=== PATIENT | female | born 1940 | race Caucasian/White ===

== ENCOUNTER → 2016-11-17 | Outpatient (CLI) | payer BC ==
[~2016-11-17] MED LIST: ASPI-428 PO; CETI10TA84 PO; FURO40TA3 PO; LATA0.009 OP; LISI-729 PO; METO1TAB31 PO; MULTTAB58 PO; PRT/20 PO; PRVC/40 PO; TIMO0.5S2 OPB
--- NOTE | 2016-11-18 07:45 | MAMMOGRAPHY REPORT ---
BILATERAL DIGITAL SCREENING MAMMOGRAM WITH CAD: 11/17/2016 CLINICAL HISTORY: Routine screening. Patient has no complaints. TECHNIQUE: Bilateral CC and MLO views were obtained. Current study was also evaluated with a Compute r Aided Detection (CAD) system. COMPARISON: Comparison is made to exams dated: 11/13/2015 mammogram, 11/08/2014 mammogram, 10/10/2013 [place] mogram, 09/23/2012 mammogram, 08/10/2011 mammogram, and 08/05/2011 mammogram - [facility]. BREAST COMPOSITION: There are scattered areas of fibroglandular density in both breasts. FINDINGS: There are benign coarse and rodlike secretory calcifications in both breasts. No suspiciou s mass, architectural distortion or cluster of suspicious microcalcifications is seen. IMPRESSION: ACR BI-RADS CATEGORY 1: NEGATIVE There is no mammographic evidence of malignancy. A 1 year screening mammogram is recommended. The pa tient will receive written notification of the results. Approximately 10% of breast cancers are not detected with mammography. A negative mammographic report should not delay biopsy if a clinically suggestive mass is present. Britney Chapman M.D. ay/:11/17/2016 15:24:51 Slab Puller: Phoebe Hagan, [facility] letter sent: Normal 1/2 BI-RADS Code: ACR BI-RADS Category 1: Negative
== END | disposition home or self-care (01) ==
LOC: C.MAMM 14:37
PROVIDERS: ATTEND Family Medicine
DX: Z12.31 Encounter for screening mammogram for malignant neoplasm of breast (principal)

== ENCOUNTER → 2017-06-02 | Day surgery (SDC) | payer BC ==
[2017-05-19 13:30] VITALS: Ht 160 cm; Wt 67.7 kg
[~2017-06-02] VITALS: Ht 160 cm; Wt 67.7 kg
[~2017-06-02] MED LIST changes: +500ML BSS 0.3ML EPI 1:1000PF IRRIG ONE; +ACETAMINOPHEN 325 MG TAB PO PRN; +AMVISC PLUS 0.8ML SYRINGE INT OCU ONE; +ATROPINE SULFATE 0.1 MG/ML 5ML SYR IV PRN; +AcetaZOLAMIDE 250 MG TAB PO SCH; +BENA10TA10 PO; +BETAXOLOL HCL 0.25% OP SUSP PER DROP CHARGE OPL SCH; +BRIMONIDINE TART 0.2% OP SOLN PER DROP CHARGE ONE; +BSS FLUSH ONE; +ENDOCOAT 0.85ML SYRINGE INT OCU ONE; +EpHEDrine SULFATE INJ 50 MG/ML AMP IV PRN; +EpINEphrine INJ 1MG/ML AMP 1 MG/ML AMP ONE; +FURO-85 PO; -FURO40TA3 PO; +LACTATED RINGER'S 1000ML 500 ML IV SCH; -LATA0.009 OP; +LATA0.009 OPB; +LIDOCAINE 4% OP SOLN DROP CHARGE ONE; +LIDOCAINE 4% OP SOLN DROP CHARGE OPL SCH; +LIDOCAINE HCL 1% MPF 2 ML VIAL ONE; -LISI-729 PO; +LISI-789 PO; -METO1TAB31 PO; +METO25TA3 PO; +MIDAZOLAM HCL 1 MG/ML 2ML VIAL ONE; +MIX: 4ML BSS 1ML EPI 1:1000 PF INSTIL ONE; +MOXIFLOXACIN OPH SOLN PER DROP CHARGE ONE; +OCUCOAT 1 ML SOLN IO ONE; +PANT40TA PO; +POLYSOL4 OPB; +POVIDONE-IODINE OP SOLN 30 ML BTL ONE; +PROPARACAINE 0.5% OP SOLN PER DROP CHARGE OPL SCH; -PRT/20 PO; -TIMO0.5S2 OPB; +TMPOPS15 OPB; +TOBRAMYCIN/DEXAMETHASONE OPH OINT PER APPLN CHARGE ONE
--- NOTE | 2017-06-02 07:31 | History & Physical Bridge - [place] ---
H&P Re-Evaluation Bridge Note: I have examined the patient, reviewed the History & Physical and in the interval since the performance of the History & Physical I have noted the following changes of clinical significance: No changes noted
[2017-06-02] MEDS: PHENYLEPHRINE HCL 2.5% OP SOLN PER DROP CHARGE OPL SCH ×2 (10:37→10:40)
[2017-06-02] MEDS: TROPICAMIDE 1% OP SOLN PER DROP CHARGE OPL SCH ×2 (10:38→10:41)
[2017-06-02] MEDS: CYCLOPENTOLATE HCL 1% OP SOLN PER DROP CHARGE OPL SCH ×2 (10:39→10:42)
[2017-06-02] MEDS: MOXIFLOXACIN OPH SOLN PER DROP CHARGE OPL SCH ×2 (10:40→10:44)
--- NOTE | 2017-06-02 11:49 | [facility] Operative Report ---
Operative Report Date of Service Jun 02, 2017. Operative Report 1. PREOPERATIVE DIAGNOSIS: Senile nuclear cataract, left eye. 2. POSTOPERATIVE DIAGNOSIS: Senile nuclear cataract, left eye. 3. PROCEDURE: Phacoemulsification of left cataract with posterior chamber lens implant, type [employer], model MI60L, power +18.5 diopters. ANESTHESIA: Local standby. SURGEON: Dr. Clay. COMPLICATIONS: None. OPERATING TIME: 10 minutes. 4. OPERATION AND FINDINGS: DESCRIPTION OF PROCEDURE: The left pupil was dilated. The anesthetic was administered using a topical technique. The left eye was prepped and draped. A speculum was placed. A clear corneal incision was formed. The chamber was filled with Amvisc Plus and Endocoat. Epinephrine solution was used. A paracentesis was placed. A capsulorrhexis was performed. The nucleus was hydrodissected. The lens was removed with phacoemulsification. Time was 4.70 seconds. The aspiration unit was used to remove the cortex. The capsule was filled with Amvisc Plus. The lens implant was folded and placed into the capsule. The incision was hydrated. The Amvisc was aspirated. The wound was secure. The chamber was deep. The pupil was round. Brimonidine, TobraDex ointment and Vigamox solution were placed. The speculum was removed. The patient was returned to the Recovery Room in stable condition. I attest to the content of the Intraoperative Record and any orders documented therein. Any exceptions are noted below. The scribe's documentation has been prepared in my presence, under my direction and personally reviewed by me in its entirety. I confirm that the note above accurately reflects all work, treatment, procedures, and medical decision making performed by me. I personally scribed for Rubens Clay M.D. ([email or web address]) on 06/02/17 at 11:49. Electronically submitted by Elodia Weir ([email or web address]).
--- NOTE | 2017-06-02 11:53 | Discharge Instructions-SurgCtr ---
Discharge Instructions Date of Service Jun 02, 2017. Visit Reason for Visit: Cataract Left Eye Discharge Discharge Diagnosis / Problem: lens implant left eye Discharge Goals Goal(s): Improve function Activity Recommendations Activity Limitations: resume your previous activity Lifting Limitations: no more than 10 pounds Exercise/Sports Limitations: gradually increase as tolerated May Resume Sexual Activity: when tolerated Shower/Bathe: tomorrow Driving or Machine Use: resume 1 day after discharge Anesthesia . Post Anesthesia Instructions: If you have had General Anesthesia or IV Sedation: * Do not drive today. * Resume driving when surgeon permits. * Do not make important decisions or sign legal documents today. * Call surgeon for: 1. Temperature elevations greater than 101 degrees F. 2. Uncontrollable pain. 3. Excessive bleeding. 4. Persistent nausea and vomiting. 5. Medication intolerance (nausea, vomiting or rash). * For nausea and vomiting use only clear liquids such as: tea, soda, bouillon until nausea subsides, then gradually increase diet as tolerated. * If you have any concerns or questions, call your surgeon's office. If physician is unavailable and it is an emergency, call 911 or go to the nearest emergency room. . Instructions / Follow-Up Instructions / Follow-Up ACTIVITY RECOMMENDATIONS: * Light activities. * Mild irritation and blurred vision are common for the first few days. * You may walk outside, read, watch television. * Redness around the white part of the eye is common. MEDICATIONS: Resume previous medications unless instructed otherwise by your surgeon. * Take white Diamox (Acetazolamide) tablet at 2 pm today. Start all eye drops at 2 pm today: * Eye drops (today and tomorrow): Prednisone - one drop in operative eye every 3 hours while awake Tobramycin- one drop in operative eye every 3 hours while awake Continue Glaucoma drop as usual in right eye only. SPECIAL CARE INSTRUCTIONS: * Tape plastic shield over eye to sleep at night. Call your doctor at with any concerns or problems. FOLLOW UP VISIT: Follow-up with Dr Clay at [place] office as scheduled. Diet Recommendations Home Diet: no limitations Procedures Procedures Performed: Left Cataract Phacoemulsification With Intraocular Lens Implant Pending Studies Studies pending at discharge: no Medical Emergencies . Who to Call and When: Medical Emergencies: If at any time you feel your situation is an emergency, please call 911 immediately. . Non-Emergent Contact Non-Emergency issues call your: [employer] Call Non-Emergent contact if: your pain is not controlled [phone] . . "Provider Documentation" section prepared by Rubens Clay. .
[2017-06-02 11:54] VITALS: TEMP 36.7
[2017-06-02 12:18] VITALS: BP 108/71; PULSE 69; O2SAT 98
--- NOTE | 2017-06-02 12:20 | Anesthesia Progress Nt - [facility] ---
Anesthesia Post Op Note Date & Time Jun 02, 2017 at 12:20 Vital Signs Pain Intensity: 0 Vital Signs Past 12 Hours Date Time Temp Pulse Resp B/P (MAP) Pulse Ox O2 Delivery O2 Flow Rate FiO2 06/02/17 12:18 69 16 108/71 (83) 98 Room Air 06/02/17 11:54 36.7 64 16 110/71 (84) 97 Room Air 06/02/17 10:27 36.6 66 18 106/71 (83) 94 Room Air Notes Mental Status: alert / awake / arousable, participated in evaluation Pt Amnestic to Procedure: Yes Nausea / Vomiting: adequately controlled Pain: adequately controlled Airway Patency, RR, SpO2: stable & adequate BP & HR: stable & adequate Hydration State: stable & adequate Anesthetic Complications: no major complications apparent
== END | disposition home or self-care (01) ==
LOC: X.SURG 09:36
PROVIDERS: ATTEND Specialist
DX: H25.12 Age-related nuclear cataract, left eye (principal); I48.91 Unspecified atrial fibrillation; I11.0 Hypertensive heart disease with heart failure; I50.9 Heart failure, unspecified; M19.90 Unspecified osteoarthritis, unspecified site; K21.9 Gastro-esophageal reflux disease without esophagitis; I25.2 Old myocardial infarction; Z88.0 Allergy status to penicillin; Z79.82 Long term (current) use of aspirin; Z79.899 Other long term (current) drug therapy

== ENCOUNTER 2023-05-27 10:58 | Inpatient (IN) ==
[2023-05-27 11:30] LABS: iSTAT Creatinine 1.1 mg/dl (0.6-1.3); iSTAT Hemoglobin 12.6 g/dl (12.0-16.0); iSTAT Ionized Calcium 1.37 mmol/l (1.12-1.32)
[2023-05-27 11:32] LABS: Base Excess VBG 1.8 mEq/L; HCO3 VBG 28 mmol/L; Oxygen Saturation VBG < 60.0 %; PCO2 VBG 48 mmHg (38-50); PO2 VBG 20 mmHg; pH VBG 7.37 (7.36-7.41)
[2023-05-27 11:43] LABS: Basophils # (auto) 0.06 K/uL (0.00-0.20); Basophils % (auto) 0.5 %; Eosinophils # (auto) 0.01 K/uL (0.00-0.50); Eosinophils % (auto) 0.1 %; Hematocrit (blood only) 34.8 % (37.0-47.0); Immature Granulocytes # (auto) 0.07 K/uL (0.01-0.20); Immature Granulocytes % (auto) 0.6 %; Lymphocytes # (auto) 2.08 K/uL (1.20-3.40); Lymphocytes % (auto) 16.6 %; Mean Corpuscular Hemoglobin 33.1 pg (25.0-34.0); Mean Corpuscular Hgb Conc 34.5 g/dL (32.0-36.0); Mean Corpuscular Volume 95.9 fL (80.0-100.0); Mean Platelet Volume 11.5 fL (9.4-12.4); Monocytes # (auto) 1.17 K/uL (0.11-0.59); Monocytes % (auto) 9.4 %; Neutrophils # (auto) 9.11 K/uL (1.40-6.50); Neutrophils % (auto) 72.8 %; Platelet Count 192 K/uL (130-400); RDW Coefficient of Variation 13.4 % (11.5-14.5); RDW Standard Deviation 47.5 fL (36.4-46.3); Red Blood Count 3.63 M/uL (4.20-5.40)
[2023-05-27] MEDS: OPTIRAY 320 500ml IV ONE (11:44)
--- NOTE | 2023-05-27 11:47 | Emergency Department Note ---
Impression & Plan Demand ischemia, Sepsis, UTI (urinary tract infection) ED Provider Note NAME: ESTEBAN GOMEZ AGE: 83 SEX: F : 1940 ARRIVES VIA: Ambulance INFORMANT: Patient, ED PROVIDER(S): Rabia Guerra MD CHIEF COMPLAINT: Hypotension HPI: This is a 83-year-old female history of previous CAD, Alzheimer's, CKD, dementia presenting for hypotension. Patient reports that yesterday she sustained a fall where she fell backwards onto her bottom. She notes that she was helped back up and continue with her day. She not hit her head during this. Does hit her bottom. She notes that over the past few months she has lost about 40+ pounds. She notes that she had recent dental extractions and has been living on Ensure drinks for the past few months. She does she has been having decreasing ADLs. She denies any current pain, shortness of breath, chest pain. Notes her feet are swollen chronically but she does not take a fluid pill for this. She has no history of CHF. She went to the medical clinic where she lives and they noted her blood pressure was 60s over 30s and called EMS. EMS arrival noted that her blood pressures in the 70s systolic. ROS: See above HPI for pertinent positives & negatives. A total of 10 systems reviewed and were otherwise negative. PAST MEDICAL HISTORY: See Below PAST SURGICAL HISTORY: See Below FAMILY HISTORY: See Below SOCIAL HISTORY: See Below HOME MEDICATIONS: See Below ALLERGIES: See Below VITALS: See Below PHYSICAL EXAMINATION: General: Cachectic Head: Normocephalic, temporal wasting Eyes: Normal inspection, extraocular muscles intact Ear, nose, throat: Normal external exam Neck: Normal range of motion Respiratory: lungs clear to auscultation bilaterally Cardiovascular: Regular rate/rhythm, no murmur GI: soft, nontender, no guarding or rebound Extremities: 2+ pitting edema to bilateral lower extremities, no obvious erythema Neuro: The patient awake and alert, appropriately conversive, no focal deficits, symmetric faces Skin: Dry, flaking skin MEDICAL DECISION MAKING: This is a 83-year-old female presenting for hypertension. Patient has lost significant weight 40+ pounds in the past few months. Her previous registration picture compared to her today is significantly different she is lost significant muscle weight, she appears malnourished and cachectic. She states has been living off only Ensure. She has signs that she is not in daycare resolved with flaking skin, unwashed closed and dirty/ripped socks possibly covered in feces. Patient is currently hypotensive but she does have CHF and bilateral extremity swelling. Will get small amounts of fluid but otherwise will do screening workup for trauma as well as basic blood work to assess for underlying conditions. -Bedside ultrasound performed after 500 mL of saline bolused, patient has severely reduced EF, possibly around 10 to 20%. IVC is plump otherwise. Patient does have bilateral lower extremity -Patient is have a lactic acidosis at 2.4 and hypotension -Despite patient a 30 cc/kg fluid bolus as per sepsis, due to patient's above bedside echo, signs of CHF, will defer further imaging. Only given 500 mL in the ER with mild improvement in blood pressure. -Otherwise patient's troponin is significantly elevated with significantly BNP as well. Consider this possible demand ischemia from sepsis. Source skin appears to be related to UTI -CK is also significantly elevated here at 1748 -No acidosis noted on VBG, 7.37/48 -Slight leukocytosis noted 12.5 -CTs do not reveal any acute traumatic process. There is no other acute process to explain patient's current symptoms. Lung nodule again noted discussed with patient. -Patient [facility] be [facility] under Dr. Tobar. Differential diagnosis: Malnutrition, PE, sepsis ER treatment provided: See below Diagnostics interpreted by me: ECG: ECG independently interpreted by me with normal sinus rhythm, rate of 82, right axis deviation, normal WI, normal QRS, normal QTc, no ST segment elevations consistent with STEMI criteria Cardiac Monitoring: An order was placed for continuous cardiac monitoring. The monitor shows a rate of 66 with sinus rhythm. Laboratory studies: As stated above and show below. Imaging studies: See below. Critical Care Note: I have personally spent 50 minutes of critical care time in the direct management of this patient. This includes bedside care, interpretation of diagnostic studies, and testing, discussion with consultants, patient, and family members, and other required patient management activities. This 50 minutes is in excess of all separately billable procedures. Past Med/Surg History Medical History (Updated 05/27/23 @ 15:26 by Rabia Guerra MD) Emphysema lung noted on 04/[address] Heart failure EF 35% Atrial fibrillation post-operative without recurrence per cardio records History of blood transfusion 2014 Gastric ulcer Cardiomyopathy EF 35% Neuropathy GERD (gastroesophageal reflux disease) Alzheimer disease CKD (chronic kidney disease) stage 3, GFR 30-59 ml/min no specialist Deformity of both feet r/t arthritis - able to ambulate with use of cane for long distance History of jaundice as a child no problems since. Glaucoma Myocardial Infarction r/t a vessel rupture ~. Hypertension Hyperlipidemia Surgical History (Updated 12/11/22 @ 11:11 by Teresa Easley RN) Hx of oral surgery (12/11/22) p Removal of Large Bony Mass Palate/Lesion - Yasamny Truong DMD s Extraction of Erupted Teeth x29, Closure of Palatal Soft Tissue Defect, Denture Splint - Yasmany Truong DMD History of esophagogastroduodenoscopy (EGD) History of bilateral tubal ligation History of colonoscopy last 06/25/20 @ [facility] History of cataract surgery bilateral History of open heart surgery VSD repair 05/2013 and 03/2016, mitral and tricuspid valve repairs H/O heart artery stent 2 CHUN RCA 05/2013 Family History Mother Heart disease Other No family history of adverse response to anesthesia Social History (Updated 09/25/22 @ 12:59 by Teresa Easley RN) Smoking Status: Never smoker Second Hand Exposure: No; Do You Dip or Chew Tobacco: No; Hx Alcohol Use: No Hx Substance Use: No Preferred Language: Albanian Communication Ability: Effective Visual Impairment: No Limitations Lunchroom Monitor Required: No Beliefs That Will Affect Care: None marital status: Current Living Situation: Spouse current occupational status: retired Feels Safe at Home: Yes Diet: low salt Assistive Devices: Cane, Glasses and Walker Allergies Allergies Allergy/AdvReac Type Severity Reaction Status Date / Time adhesive Allergy Mild REDENNED Verified 05/27/23 14:03 FROM CERTAIN TYPES Penicillins Allergy Mild RASH Verified 05/27/23 14:03 lisinopril AdvReac Cough Verified 05/27/23 14:03 Home Meds Home Medications Medication Instructions Recorded Confirmed cetirizine 10 mg tablet (Zyrtec) 10 mg PO QAM 12/19/17 05/27/23 multivitamin 1 tab PO QAM 12/19/17 05/27/23 pantoprazole 40 mg tablet,delayed 40 mg PO HS 12/19/17 05/27/23 release timolol maleate 0.5 % eye drops 1 drp ophthalmic (eye) QA 12/19/17 05/27/23 atorvastatin 40 mg tablet 40 mg PO HS 06/18/20 05/27/23 cholecalciferol (vitamin D3) 25 25 mcg PO QAM 06/18/20 05/27/23 mcg (1,000 unit) capsule (Vitamin D3) vit C 250 mg-vit E 90 mg-zinc 40 2 tab PO QAM 06/18/20 05/27/23 mg-copper 1 [id number]-[id number] capsule (PreserVision AREDS-2) aspirin 81 mg tablet,delayed 162 mg PO QAM 09/25/21 05/27/23 release (Adult Low Dose Aspirin) donepezil 10 mg tablet 10 mg PO HS 09/25/21 05/27/23 metoprolol succinate 25 mg 25 mg PO HS 09/25/21 05/27/23 tablet,extended release 24 hr acetaminophen 650 mg tablet 650 mg PO QA 10/23/21 05/27/23 ascorbic acid (vitamin C) 1,000 mg 1 g PO QAM 10/23/21 05/27/23 tablet (Vitamin C) latanoprostene bunod 0.024 % eye 1 drp ophthalmic (eye) HS 10/23/21 05/27/23 drops (Vyzulta) calcium carbonate 500 mg calcium 500 mg PO QAM 09/25/22 05/27/23 (1,250 mg) chewable tablet (Calcium 500) diphenhydramine 25 1 tab PO HS 12/03/22 05/27/23 mg-acetaminophen 500 mg tablet (Tylenol PM Extra Strength) losartan 25 mg tablet 25 mg PO DAILY 05/27/23 05/27/23 Results & Data (ED) Vital Signs Vital Signs - 24 hr 05/27/23 11:06 05/27/23 11:15 05/27/23 11:19 Temperature 36.4 C Temperature Source Oral Pulse Rate 84 78 Pulse Rate from SpO2 Sensor Respiratory Rate 20 Respiratory Effort / Characteristics Non-Labored Spontaneous Respiratory Depth Normal Blood Pressure 75/40 L 96/51 L Blood Pressure Mean 51 71 Pulse Oximetry Oxygen Delivery Method Sepsis Recent Fever Within 48 Hours No Sepsis New/Unexplained Change in Mental Status No Sepsis Action Taken by Nursing No Action Required 05/27/23 11:20 05/27/23 11:20 05/27/23 11:31 Temperature Temperature Source Pulse Rate 76 83 Pulse Rate from SpO2 Sensor Respiratory Rate 17 24 Respiratory Effort / Characteristics Respiratory Depth Blood Pressure 83/54 L 94/56 L Blood Pressure Mean 73 68 Pulse Oximetry 98 Oxygen Delivery Method Sepsis Recent Fever Within 48 Hours Sepsis New/Unexplained Change in Mental Status Sepsis Action Taken by Nursing 05/27/23 11:51 05/27/23 11:58 05/27/23 12:00 Temperature Temperature Source Pulse Rate 76 73 Pulse Rate from SpO2 Sensor 74 72 Respiratory Rate 15 19 19 Respiratory Effort / Characteristics Respiratory Depth Blood Pressure 85/44 L 83/50 L 85/54 L Blood Pressure Mean 57 61 64 Pulse Oximetry 98 97 Oxygen Delivery Method Room Air Room Air Sepsis Recent Fever Within 48 Hours Sepsis New/Unexplained Change in Mental Status Sepsis Action Taken by Nursing 05/27/23 12:15 05/27/23 12:31 05/27/23 13:17 Temperature Temperature Source Pulse Rate 74 74 87 Pulse Rate from SpO2 Sensor 74 74 76 Respiratory Rate 18 23 22 Respiratory Effort / Characteristics Respiratory Depth Blood Pressure 85/40 L 108/48 L 80/54 L Blood Pressure Mean 55 68 62 Pulse Oximetry 98 99 95 Oxygen Delivery Method Room Air Room Air Room Air Sepsis Recent Fever Within 48 Hours Sepsis New/Unexplained Change in Mental Status Sepsis Action Taken by Nursing 05/27/23 13:30 05/27/23 13:31 05/27/23 13:46 Temperature Temperature Source Pulse Rate 78 78 82 Pulse Rate from SpO2 Sensor 78 77 80 Respiratory Rate 21 21 20 Respiratory Effort / Characteristics Respiratory Depth Blood Pressure 101/46 L 83/44 L Blood Pressure Mean 64 57 Pulse Oximetry 97 96 94 Oxygen Delivery Method Room Air Room Air Sepsis Recent Fever Within 48 Hours Sepsis New/Unexplained Change in Mental Status Sepsis Action Taken by Nursing 05/27/23 14:00 05/27/23 14:15 05/27/23 14:45 Temperature Temperature Source Pulse Rate 81 77 75 Pulse Rate from SpO2 Sensor 81 75 79 Respiratory Rate 26 H 18 22 Respiratory Effort / Characteristics Respiratory Depth Blood Pressure 90/53 L 94/61 L 109/53 L Blood Pressure Mean 65 72 71 Pulse Oximetry 100 98 100 Oxygen Delivery Method Room Air Room Air Room Air Sepsis Recent Fever Within 48 Hours Sepsis New/Unexplained Change in Mental Status Sepsis Action Taken by Nursing 05/27/23 15:00 Temperature Temperature Source Pulse Rate 66 Pulse Rate from SpO2 Sensor 80 Respiratory Rate 19 Respiratory Effort / Characteristics Respiratory Depth Blood Pressure 114/49 L Blood Pressure Mean 70 Pulse Oximetry 100 Oxygen Delivery Method Room Air Sepsis Recent Fever Within 48 Hours Sepsis New/Unexplained Change in Mental Status Sepsis Action Taken by Nursing Laboratory Data 05/27/23 11:22 05/27/23 12:49 Lab Results 05/27/23 05/27/23 05/27/23 Range/Units 11:18 11:22 11:33 WBC 12.50 H (4.8-10.8) K/ul RBC 3.63 L (4.20-5.40) M/uL Hgb 12.0 (12.0-16.0) g/dl POC Hgb 12.6 (12.0-16.0) g/dl Hct 34.8 L (37.0-47.0) % POC Hct 37 (37-47) % MCV 95.9 (80.0-100.0) fL MCH 33.1 (25.0-34.0) pg MCHC 34.5 (32.0-36.0) g/dL RDW Std Deviation 47.5 H (36.4-46.3) fL RDW Coeff of Sabrina 13.4 (11.5-14.5) % Plt Count 192 (130-400) K/uL MPV 11.5 (9.4-12.4) fL Immature Gran % (Auto) 0.6 % Neut % (Auto) 72.8 % Lymph % (Auto) 16.6 % Irwin % (Auto) 9.4 % Eos % (Auto) 0.1 % Baso % (Auto) 0.5 % Neut # (Auto) 9.11 H (1.40-6.50) K/uL Lymph # (Auto) 2.08 (1.20-3.40) K/uL Irwin # (Auto) 1.17 H (0.11-0.59) K/uL Eos # (Auto) 0.01 (0.00-0.50) K/uL Baso # (Auto) 0.06 (0.00-0.20) K/uL Immature Gran # (Auto) 0.07 (0.01-0.20) K/uL VBG pH 7.37 (7.36-7.41) VBG pCO2 48 (38-50) mmHg VBG pO2 20 mmHg VBG HCO3 28 mmol/L VBG O2 Saturation < 60.0 % VBG Base Excess 1.8 mEq/L POC Sodium 135 (135-144) mmol/L Sodium 136 (136-145) mmol/L POC Potassium 4.0 (3.3-5.0) mmol/L Potassium TNP POC Chloride 98 L (101-112) mmol/L Chloride 102 (98-107) mmol/L Carbon Dioxide 26 (21-32) mmol/L POC Total CO2 26 (24-31) mmol/L Anion Gap 8 (3-11) POC Anion Gap 15.0 L (16-25) mmol/L POC BUN 26 H (7-18) mg/dl BUN 21 (6-23) mg/dl Creatinine 1.09 (0.6-1.2) mg/dl POC Creatinine 1.1 (0.6-1.3) mg/dl Est Cr Clr Drug Dosing 28.6 ml/min Est GFR ( Amer) 54.7 ml/min Est GFR (Non-Af Amer) 47.2 ml/min BUN/Creatinine Ratio 19.3 (10-20) Glucose 107 H (70-99(Fasting)) mg/dl POC Glucose (other) 101 H (70-99) mg/dl Lactate 2.4 H* (0.4-2.0) mmol/L Calcium 10.7 H (8.6-10.3) mg/dl POC Ioniz Calcium Karen 1.37 H (1.12-1.32) mmol/l Total Creatine Kinase 1748 H (26-192) U/L Troponin I High Sens 2231.1 H* (0-14) pg/ml B-Natriuretic Peptide 1830 H (0-100) pg/ml Urine Color Dark Yellow Urine Appearance Turbid A (Clear) Urine pH 5.5 (4.5-7.5) Ur Specific [place] 1.022 (1.000-1.030) Urine Protein 2+ H (Negative) Urine Glucose (UA) Negative (Negative) Urine Ketones 1+ H (Negative) Urine Blood Trace H (Negative) Urine Nitrite Negative (Negative) Urine Bilirubin Negative (Negative) Urine Urobilinogen Negative (Negative) Ur Leukocyte Esterase 3+ H (Negative) Urine WBC (Auto) >30 H (0-5) /hpf Urine RBC (Auto) 5-10 H (0-4) /hpf U Hyaline Cast (Auto) 1-5 (0-5) /lpf U Epithel Cells (Auto) >30 H (0-5) /lpf Urine Bacteria (Auto) 4+ H (Negative) Urine Yeast Not Reportable SARS-CoV-2 (PCR) (Negative) Influenza Type A (PCR) (Neg) Influenza Type B (PCR) (Neg) RSV (RT-PCR) (Neg) 05/27/23 05/27/23 05/27/23 Range/Units 12:49 13:17 13:49 WBC (4.8-10.8) K/ul RBC (4.20-5.40) M/uL Hgb (12.0-16.0) g/dl POC Hgb (12.0-16.0) g/dl Hct (37.0-47.0) % POC Hct (37-47) % MCV (80.0-100.0) fL MCH (25.0-34.0) pg MCHC (32.0-36.0) g/dL RDW Std Deviation (36.4-46.3) fL RDW Coeff of Sabrina (11.5-14.5) % Plt Count (130-400) K/uL MPV (9.4-12.4) fL Immature Gran % (Auto) % Neut % (Auto) % Lymph % (Auto) % Irwin % (Auto) % Eos % (Auto) % Baso % (Auto) % Neut # (Auto) (1.40-6.50) K/uL Lymph # (Auto) (1.20-3.40) K/uL Irwin # (Auto) (0.11-0.59) K/uL Eos # (Auto) (0.00-0.50) K/uL Baso # (Auto) (0.00-0.20) K/uL Immature Gran # (Auto) (0.01-0.20) K/uL VBG pH (7.36-7.41) VBG pCO2 (38-50) mmHg VBG pO2 mmHg VBG HCO3 mmol/L VBG O2 Saturation % VBG Base Excess mEq/L POC Sodium (135-144) mmol/L Sodium (136-145) mmol/L POC Potassium (3.3-5.0) mmol/L Potassium 3.4 L POC Chloride (101-112) mmol/L Chloride (98-107) mmol/L Carbon Dioxide (21-32) mmol/L POC Total CO2 (24-31) mmol/L Anion Gap (3-11) POC Anion Gap (16-25) mmol/L POC BUN (7-18) mg/dl BUN (6-23) mg/dl Creatinine (0.6-1.2) mg/dl POC Creatinine (0.6-1.3) mg/dl Est Cr Clr Drug Dosing ml/min Est GFR ( Amer) ml/min Est GFR (Non-Af Amer) ml/min BUN/Creatinine Ratio (10-20) Glucose (70-99(Fasting)) mg/dl POC Glucose (other) (70-99) mg/dl Lactate 2.3 H* (0.4-2.0) mmol/L Calcium (8.6-10.3) mg/dl POC Ioniz Calcium Karen (1.12-1.32) mmol/l Total Creatine Kinase (26-192) U/L Troponin I High Sens 1566.6 H* D (0-14) pg/ml B-Natriuretic Peptide (0-100) pg/ml Urine Color Urine Appearance (Clear) Urine pH (4.5-7.5) Ur Specific [place] (1.000-1.030) Urine Protein (Negative) Urine Glucose (UA) (Negative) Urine Ketones (Negative) Urine Blood (Negative) Urine Nitrite (Negative) Urine Bilirubin (Negative) Urine Urobilinogen (Negative) Ur Leukocyte Esterase (Negative) Urine WBC (Auto) (0-5) /hpf Urine RBC (Auto) (0-4) /hpf U Hyaline Cast (Auto) (0-5) /lpf U Epithel Cells (Auto) (0-5) /lpf Urine Bacteria (Auto) (Negative) Urine Yeast SARS-CoV-2 (PCR) NEGATIVE (Negative) Influenza Type A (PCR) Negative (Neg) Influenza Type B (PCR) Negative (Neg) RSV (RT-PCR) Negative (Neg) Administered Medications Discontinued Medications Sodium Chloride (Nss) 250 mls @ 999 mls/hr IV .Q16M ONE Stop: 05/27/23 12:36 Last Infusion: 05/27/23 13:32 Dose: Infused Documented By: Admin: 05/27/23 12:26 Dose: 999 mls/hr Documented By: NH Ceftriaxone Sodium (Rocephin) 1,000 mg in 50 mls @ 100 mls/hr IV NOW STA Stop: 05/27/23 12:50 Last Infusion: 05/27/23 13:32 Dose: Infused Documented By: Admin: 05/27/23 12:29 Dose: 100 mls/hr Documented By: NH Parenteral Electrolytes (Plasma-Lyte A Ph 7.4) 500 mls @ 999 mls/hr IV .Q31M ONE Stop: 05/27/23 14:20 Last Admin: 05/27/23 14:59 Dose: 999 mls/hr Documented By: NH Ioversol (Optiray 320 500ml) 91 ml IV ONCE ONE Stop: 05/27/23 11:44 Last Admin: 05/27/23 11:44 Dose: 91 ml Documented By: ELDA Potassium Chloride (Potassium Chloride 20 Meq/15 Ml Udc) 40 meq PO NOW STA Stop: 05/27/23 14:14 Last Admin: 05/27/23 14:59 Dose: 40 meq Documented By: MAGGY Imaging Data Radiologist's Impression: Abdomen/Pelvis CT 05/27/23 11:[address] WITH IV CONTRAST CT DOSE: HISTORY: Trauma TECHNIQUE: Multiaxial CT images of the abdomen and pelvis were performed following the use of intravenous contrast. A dose lowering technique was utilized adhering to the principles of ALARA. COMPARISON STUDY: None. FINDINGS: The lung bases will be reported on the same day chest CT. There is apparent surgical material along the undersurface of the heart. This is unchanged since prior CT. No pneumatosis, free air or portal venous gas is present. Water attenuation hepatic lesions measure up to 3.5 cm. These suggest cysts. There is no biliary ductal dilatation status post cholecystectomy. The spleen, adrenal glands and pancreas are unremarkable. No peripancreatic infiltration is present. Several right renal cysts are present. There is no hydronephrosis. No evidence for a bowel obstruction. The appendix is not visualized. No right lower quadrant inflammation is present. Sigmoid diverticulosis is noted without evidence for acute diverticulitis. There is no ascites or lymphadenopathy. Extensive atherosclerotic plaque of the abdominal aorta is noted. Old T11, T12 and L1 compression fractures are shown on prior CT. The bladder is decompressed and not well evaluated. There is mild body wall edema. The uterus and adnexa are unremarkable. IMPRESSION: 1. No acute process within the abdomen or pelvis. 2. No bowel obstruction. No bowel wall thickening. 3. Colonic diverticulosis. No evidence for acute diverticulitis. 4. Additional findings as described above. ACT 112: Negative or not required by law. Electronically signed by: Krishna Cervantes M.D. 05/27/2023 12:[address] 05/27/23 11:[address] DOSE: HISTORY: Neck pain. Trauma TECHNIQUE: Multiaxial CT images of the cervical spine were performed and reformatted in the sagittal and coronal plane without the use of contrast. A dose lowering technique was utilized adhering to the principles of ALARA. COMPARISON: Cervical spine CT 09/15/2020. FINDINGS: No fractures. Prevertebral soft tissues and the C1-C2 interval are intact. No pneumothorax. Mild reversal of the normal lordotic curvature. The C2- C3 facets are fused. Severe disc space narrowing at C6-C7. Stepwise anterolisthesis at C4-C5 and C5-C6, unchanged. IMPRESSION: No fractures within the cervical spine. ACT 112: Negative or not required by law. Electronically signed by: Krishna Cervantes M.D. 05/27/2023 12:[address] 05/27/23 11:05 CT SCAN OF THE CHEST WITH IV CONTRAST CLINICAL HISTORY: Trauma. COMPARISON STUDY: Chest CT scans dated 04/16/2022 and 09/15/2020. TECHNIQUE: Following the IV administration of 91 cc of Optiray 320, CT scan of the thorax was performed from the thoracic inlet to the upper abdomen. Images are reviewed in the axial, sagittal, and coronal planes. IV contrast was administered without complication. A dose lowering technique was utilized adhering to the principles of ALARA. CT DOSE: 1606. mGy.cm FINDINGS: Thyroid: Imaged portions of the thyroid gland are normal in size and attenuation. Thoracic aorta: There is atherosclerotic calcification of the thoracic aorta, which is normal in caliber and demonstrates bovine variant arch anatomy. No dissection is seen. Pulmonary vasculature: The pulmonary trunk is normal in caliber. There are no filling defects identified in the central pulmonary vessels to indicate pulmonary embolus. Note that this examination was not protocoled for evaluation of the pulmonary arteries. Heart: The patient is status post midline sternotomy. There is evidence of previous mitral and tricuspid valve surgery. The heart is enlarged and without pericardial effusion. The coronary arteries are densely calcified. Lungs and pleural spaces: There is no airspace consolidation, pleural effusion, or pneumothorax. The trachea and central airways are clear. Mild scarring/atelectasis is seen at the lung bases. A 1.9 cm groundglass lesion is again seen at the left apex on image #57. A 6 mm groundglass nodule is again seen at the right apex is again seen on image #44. Mediastinum: There is no mediastinal hematoma or lymphadenopathy. Lilibeth: Clear. Axillae: There is no axillary lymphadenopathy. Upper abdomen: Cholecystectomy clips are noted. There is asymmetric cortical atrophy of the left kidney as compared to the right. Scattered renal cysts measure up to 2 cm. Hepatic cysts measure up to 3.4 cm. Skeletal structures: The skeletal structures are osteopenic. No acute fracture is seen. There are chronic compression deformities of T12, L1, and L2. Degenerative change is noted in the shoulders and spine. No lytic or blastic bony lesions are seen. IMPRESSION: 1. There is no acute posttraumatic intrathoracic abnormality. 2. There is no airspace consolidation, pleural effusion, or pneumothorax. 3. Cardiomegaly. 4. A 1.9 cm groundglass lesion is again seen at the left apex. This remains highly suspicious for low-grade adenomatous lesion. A 6 mm groundglass nodule at the right apex is also unchanged. Nonemergent follow-up with pulmonology is recommended. 5. No acute fracture is seen. 6. Additional findings as above. ACT 112: Negative or not required by law. Electronically signed by: Talat Smith M.D. 05/27/2023 12:[address] 05/27/23 11:05 CT OF THE HEAD WITHOUT CONTRAST CLINICAL HISTORY: Trauma COMPARISON STUDY: MRI of the brain August 22, 2020. Head CT September 15, 2020. TECHNIQUE: Helical axial images of the head were obtained without IV contrast. Automated exposure control was utilized for the study. A dose lowering technique was utilized adhering to the principles of ALARA. FINDINGS: No acute intracranial hemorrhage, midline shift or mass effect is present. White matter hypodensities are similar to prior exam and suggest small vessel disease. There is mild atrophy. The ventricular system is unremarkable. The basal cisterns are patent. No extra-axial collections are present. There are no findings to suggest acute dural sinus thrombosis or acute territorial infarct. No significant calvarial abnormalities are present. Visualized portions of the sinuses and mastoid air cells are clear. IMPRESSION: 1. No acute intracranial findings. 2. No calvarial fractures. ACT 112: Negative or not required by law. Electronically signed by: Arturo Tee M.D. 05/27/2023 11:56 AM Discharge Plan Visit Data Chief Complaint: Hypotension ED Provider: Rabia Guerra Discharge Problem: Demand ischemia, Sepsis, UTI (urinary tract infection) Forms Stand Alone Forms: My [facility] Prescriptions Prescriptions: No Action metoprolol succinate 25 mg tablet extended release 24 hr 25 mg PO HS aspirin [Adult Low Dose Aspirin] 81 mg tablet,delayed release (DR/EC) 162 mg PO QAM donepezil 10 mg tablet 10 mg PO HS calcium carbonate [Calcium 500] 500 mg calcium (1,250 mg) tablet,chewable 500 mg PO QAM multivitamin Tablet 1 tab PO QAM cetirizine [Zyrtec] 10 mg Tablet 10 mg PO QAM pantoprazole 40 mg Tablet,Delayed Release (Dr/Ec) 40 mg PO HS timolol maleate 0.5 % Drops 1 drp OPHTHALMIC (EYE) QAM cholecalciferol (vitamin D3) [Vitamin D3] 25 mcg (1,000 unit) Capsule 25 mcg PO QAM PreserVision AREDS-2 250-90-40-1 mg Capsule 2 tab PO QAM atorvastatin 40 mg Tablet 40 mg PO HS ascorbic acid (vitamin C) [Vitamin C] 1,000 mg Tablet 1 g PO QAM acetaminophen 650 mg Tablet 650 mg PO QAM Vyzulta 0.024 % Drops 1 drp OPHTHALMIC (EYE) HS diphenhydramine-acetaminophen [Tylenol PM Extra Strength] 25-500 mg Tablet 1 tab PO HS losartan 25 mg tablet 25 mg PO DAILY Referrals Referrals: Emelina Fu [Primary Care Provider] -
[2023-05-27 11:49] LABS: Appearance Urine Turbid (Clear); Bacteria Urine Automated 4+ (Negative); Bilirubin Urine Negative (Negative); Blood Urine Trace (Negative); Color Urine Dark Yellow; Epithelial Cell Urine Auto >30 /lpf (0-5); Glucose Urine UA Negative (Negative); Ketones Urine 1+ (Negative); Leukocyte Esterase Urine 3+ (Negative); Nitrite Urine Negative (Negative); Protein Urine 2+ (Negative); Specific Gravity Urine 1.022 (1.000-1.030); Urobilinogen Urine Negative (Negative); WBC Urine Automated >30 /hpf (0-5); pH Urine 5.5 (4.5-7.5)
--- NOTE | 2023-05-27 11:57 | CT Scan Report ---
CT OF THE HEAD WITHOUT CONTRAST CLINICAL HISTORY: Trauma COMPARISON STUDY: MRI of the brain August 22, 2020. Head CT September 15, 2020. TECHNIQUE: Helical axial images of the head were obtained without IV contrast. Automated exposure con trol was utilized for the study. A dose lowering technique was utilized adhering to the principles o f ALARA. FINDINGS: No acute intracranial hemorrhage, midline shift or mass effect is present. White matter hyp odensities are similar to prior exam and suggest small vessel disease. There is mild atrophy. The lakshmi tricular system is unremarkable. The basal cisterns are patent. No extra-axial collections are presen t. There are no findings to suggest acute dural sinus thrombosis or acute territorial infarct. No sig nificant calvarial abnormalities are present. Visualized portions of the sinuses and mastoid air cell s are clear. IMPRESSION: 1. No acute intracranial findings. 2. No calvarial fractures. ACT 112: Negative or not required by law. Electronically signed by: Arturo Tee M.D. 05/27/2023 11:56 AM
--- NOTE | 2023-05-27 12:03 | CT Scan Report ---
CT SCAN OF THE CHEST WITH IV CONTRAST CLINICAL HISTORY: Trauma. COMPARISON STUDY: Chest CT scans dated 04/16/2022 and 09/15/2020. TECHNIQUE: Following the IV administration of 91 cc of Optiray 320, CT scan of the thorax was perform ed from the thoracic inlet to the upper abdomen. Images are reviewed in the axial, sagittal, and susan nal planes. IV contrast was administered without complication. A dose lowering technique was utilize d adhering to the principles of ALARA. CT DOSE: 1606. mGy.cm FINDINGS: Thyroid: Imaged portions of the thyroid gland are normal in size and attenuation. Thoracic aorta: There is atherosclerotic calcification of the thoracic aorta, which is normal in maeve denise and demonstrates bovine variant arch anatomy. No dissection is seen. Pulmonary vasculature: The pulmonary trunk is normal in caliber. There are no filling defects identif ied in the central pulmonary vessels to indicate pulmonary embolus. Note that this examination was no t protocoled for evaluation of the pulmonary arteries. Heart: The patient is status post midline sternotomy. There is evidence of previous mitral and tricus pid valve surgery. The heart is enlarged and without pericardial effusion. The coronary arteries are densely calcified. Lungs and pleural spaces: There is no airspace consolidation, pleural effusion, or pneumothorax. The trachea and central airways are clear. Mild scarring/atelectasis is seen at the lung bases. A 1.9 cm groundglass lesion is again seen at the left apex on image #57. A 6 mm groundglass nodule is again se en at the right apex is again seen on image #44. Mediastinum: There is no mediastinal hematoma or lymphadenopathy. Lilibeth: Clear. Axillae: There is no axillary lymphadenopathy. Upper abdomen: Cholecystectomy clips are noted. There is asymmetric cortical atrophy of the left kidn ey as compared to the right. Scattered renal cysts measure up to 2 cm. Hepatic cysts measure up to 3. 4 cm. Skeletal structures: The skeletal structures are osteopenic. No acute fracture is seen. There are chr onic compression deformities of T12, L1, and L2. Degenerative change is noted in the shoulders and sp ine. No lytic or blastic bony lesions are seen. IMPRESSION: 1. There is no acute posttraumatic intrathoracic abnormality. 2. There is no airspace consolidation, pleural effusion, or pneumothorax. 3. Cardiomegaly. 4. A 1.9 cm groundglass lesion is again seen at the left apex. This remains highly suspicious for low -grade adenomatous lesion. A 6 mm groundglass nodule at the right apex is also unchanged. Nonemergent follow-up with pulmonology is recommended. 5. No acute fracture is seen. 6. Additional findings as above. ACT 112: Negative or not required by law. Electronically signed by: Talat Smith M.D. 05/27/2023 12:02 PM
--- NOTE | 2023-05-27 12:06 | CT Scan Report ---
CERVICAL SPINE CT CT DOSE: HISTORY: Neck pain. Trauma TECHNIQUE: Multiaxial CT images of the cervical spine were performed and reformatted in the sagittal and coronal plane without the use of contrast. A dose lowering technique was utilized adhering to th e principles of ALARA. COMPARISON: Cervical spine CT 09/15/2020. FINDINGS: No fractures. Prevertebral soft tissues and the C1-C2 interval are intact. No pneumothorax. Mild reversal of the normal lordotic curvature. The C2-C3 facets are fused. Severe disc space narrow ing at C6-C7. Stepwise anterolisthesis at C4-C5 and C5-C6, unchanged. IMPRESSION: No fractures within the cervical spine. ACT 112: Negative or not required by law. Electronically signed by: Krishna Cervantes M.D. 05/27/2023 12:05 PM
[2023-05-27 12:09] LABS: Anion Gap 8 (3-11); BUN Creatinine Ratio 19.3 (10-20); Blood Urea Nitrogen 21 mg/dl (6-23); Calcium 10.7 mg/dl (8.6-10.3); Carbon Dioxide 26 mmol/L (21-32); Chloride 102 mmol/L (98-107); Creatine Kinase 1748 U/L (26-192); Creatinine Clr Calc Pharmacy 28.6 ml/min; Est GFR (African American) 54.7 ml/min; Est GFR (Non-African American) 47.2 ml/min; Glucose 107 mg/dl (70-99(Fasting)); Sodium 136 mmol/L (136-145); Troponin I High Sensitivity 2231.1 pg/ml (0-14)
--- NOTE | 2023-05-27 12:21 | CT Scan Report ---
ABDOMEN AND PELVIS CT WITH IV CONTRAST CT DOSE: HISTORY: Trauma TECHNIQUE: Multiaxial CT images of the abdomen and pelvis were performed following the use of intrave nous contrast. A dose lowering technique was utilized adhering to the principles of ALARA. COMPARISON STUDY: None. FINDINGS: The lung bases will be reported on the same day chest CT. There is apparent surgical materi al along the undersurface of the heart. This is unchanged since prior CT. No pneumatosis, free air or portal venous gas is present. Water attenuation hepatic lesions measure up to 3.5 cm. These suggest cysts. There is no biliary ductal dilatation status post cholecystectomy. The spleen, adrenal glands and pancreas are unremarkable. No peripancreatic infiltration is present. Several right renal cysts a re present. There is no hydronephrosis. No evidence for a bowel obstruction. The appendix is not visu alized. No right lower quadrant inflammation is present. Sigmoid diverticulosis is noted without evid ence for acute diverticulitis. There is no ascites or lymphadenopathy. Extensive atherosclerotic plaq ue of the abdominal aorta is noted. Old T11, T12 and L1 compression fractures are shown on prior CT. The bladder is decompressed and not well evaluated. There is mild body wall edema. The uterus and adn exa are unremarkable. IMPRESSION: 1. No acute process within the abdomen or pelvis. 2. No bowel obstruction. No bowel wall thickening. 3. Colonic diverticulosis. No evidence for acute diverticulitis. 4. Additional findings as described above. ACT 112: Negative or not required by law. Electronically signed by: Krishna Cervantes M.D. 05/27/2023 12:20 PM
[2023-05-27] MEDS: SODIUM CHLORIDE 0.9% 250 ML IV ONE (12:26)
[2023-05-27] MEDS: cefTRIAXone SODIUM 1,000 MG/50 ML BAG IV STA (12:29)
--- NOTE | 2023-05-27 13:21 | History & Physical Report ---
Date of Service May 27, 2023 Assessment & Plan (1) Sepsis: Plan: Hypotension, suspect urosepsis Suspect urinary source with 4+ bacteria, leukocyte esterase, ketones. Clinically with polyuria. Rocephin continued Patient is hypotensive on arrival, BP improved with NSS 250 cc. IBW 1363 cc 30 cc/kg crystalloid resuscitation was deferred due to history of EF of 35% with elevated BNP of 1830. On clinical reassessment remains volume contracted appearing, on room air, with no rales/crackles suggestive of pulmonary edema. Rocephin ordered, continued. No hx of resistant UTI. Blood cultures, urine cultures pending CTA/P: No acute findings. -ER bedside echo with EF 10%, plethoric/noncompressible IVC suggestive of volume overload. This is a decrease from prior 35%. Troponin was elevated on admission now downtrending and without any chest pain. Suspect current increase is due to demand, formal echo pending.? Old event with interval decrease in the Patient with normalization of blood pressure at bedside recheck post completion of 500 cc bolus (750 cc total). Remains without hypoxia on room air. Will admit to PCU and clinically rebolus as needed for hypotension. If she develops an oxygen requirement or signs of pulmonary edema recurrent with hypotension, or biomarkers sharply increased and do not improve with fluids then will transfer to ICU for pressors at that time this is not currently indicated Initial lactate equivocal, this was performed prior to adequate fluid resuscitation. BP now improved on bedside reassessment. Lactic trended. (2) UTI (urinary tract infection): Plan: as noted (3) Protein calorie malnutrition: Plan: Protein Calorie Malnutrition -Patient reports she has very poor p.o. intake, both due to low appetite and also had temporary falls dentures and recent palatal hard palate/chronic Osteolite of surgical management 11/2022 and as result had been drinking exclusively Ensure for an extended period of time. This has been treated, now has full dentures, and can progress her diet but has had very little appetite. 40 pounds weight loss in the preceding months. Is 47.6 kg, BMI 20.5 on admission Endorses loose bowels and multiple bowel movements per day since being on Ensure. Was previously on antibiotics several months ago. No prior history of C. difficile, stool studies are pending due to persistent liquid diarrhea (4) Elevated troponin: Plan: Elevated troponin with history of CAD Troponin 2231 on admission, no chest pain. EKG without territorial ST segment change.? Progression from sinusoidal to inverted T waves and far lateral leads compared to 11/2022. Suspect elevation due to sepsis and demand, clinically without signs of ACS Troponin trended, echo pending - history of [place] and PCI to RCA times 06/01/2013 Additional cardiac history includes VSD repair 2013, repeat VSD repair 2015 due to patch failure, mitral valve repair with Saint Dipak angioplasty ring Periprocedural atrial flutter without recurrence EF 08/30/2019 2135%, no clinical history of CHF Patient with significant weight loss, unclear normal dry weight. She does not have hypoxia on admission, and CT of the chest does not show any evidence of pulmonary edema or pleural effusion. No PE is noted although not a PE protocol study. Patient does have a redemonstrated groundglass lesion of the left apex concerning for adenocarcinoma. (5) Cardiomyopathy: Plan: as noted (6) Fall: Plan: Fall Landed on buttock, denies head injury/loss of consciousness. Reports that she was sitting on the ground for an extended period of time and felt too weak to stand CThead and CTC-spine without acute findings Fall due to weakness, denies syncopal/presyncopal symptoms. 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 CK17 48 on admission CK trended Creatinine at baseline BMP daily, fluids and other treatment as noted (8) GERD (gastroesophageal reflux disease): Plan: History of gastric ulcer Aspirin continued 81 mg daily PPI has been continued since last November. Denies recent epigastric pain or GI bleeding. This could be contributing to her diarrhea, due to recurrent ulcers and continuation of aspirin had been previously recommended for lifelong Protonix therapy. Will trial dose reduction to 20 mg No anemia, no disproportionate BUN elevation on admission. No evidence of active upper GI bleed on admission Plan Diet: Regular + Boost Dispo: PCU. CODE: DNR/DNI, OK with pressors in ICU if indicated. DVT PPX: heparin History of Present Illness Primary Care Provider: Emelina Nickie Trevizo is a 83-year-old female with a past medical history of Alzheimer's, CKD, CAD who presented from [facility] with weakness and a backwards fall landing on her butt without head injury. She has had 40 pounds of weight loss in the previous few months, has been with gradually decreasing strength, and is hypotensive on arrival in the ER. Seen at the bedside with her present. Denies chest pain, chest pressure, shortness of breath. Has had some leg swelling. Endorses polyuria and gets up several times at night to use the bathroom. Denies dysuria. Has also had several loose bowel movements daily, notes that her diet since November has been just to ensure due to having orthodontic procedures performed and dentures revised. She now has full dentures and can progress to a regular diet but has had a poor appetite. Denies fever/chills. Has a history of reduced ejection fraction but has never had clinical heart failure per patient. Denies chest pain at any point. No palpitations. She feels overall she is just gradually worsening and getting progressively weaker with poor appetite. Denies any sudden worsening in the last week or 2, feels this been a gradual decline. She is seen at the bedside with her who gives collateral history. Denies tick bites, skin infections. No cough or sputum production. Denies abdominal pain. Medical History: Reviewed Medications: Reviewed Surgical History: Reviewed Family history: Reviewed Allergies: Reviewed Social History: Denies tobacco/etoh Code Status: DNR/DNI Allergies Allergy/AdvReac Type Severity Reaction Status Date / Time adhesive Allergy Mild REDENNED Verified 05/27/23 14:03 FROM CERTAIN TYPES Penicillins Allergy Mild RASH Verified 05/27/23 14:03 lisinopril AdvReac Cough Verified 05/27/23 14:03 Home Medications Medication Instructions Recorded Confirmed Type cetirizine 10 mg tablet (Zyrtec) 10 mg PO QAM 12/19/17 05/27/23 History multivitamin 1 tab PO QAM 12/19/17 05/27/23 History pantoprazole 40 mg tablet,delayed 40 mg PO HS 12/19/17 05/27/23 History release timolol maleate 0.5 % eye drops 1 drp ophthalmic (eye) QA 12/19/17 05/27/23 History atorvastatin 40 mg tablet 40 mg PO HS 06/18/20 05/27/23 History cholecalciferol (vitamin D3) 25 25 mcg PO QAM 06/18/20 05/27/23 History mcg (1,000 unit) capsule (Vitamin D3) vit C 250 mg-vit E 90 mg-zinc 40 2 tab PO QAM 06/18/20 05/27/23 History mg-copper 1 [id number] capsule (PreserVision AREDS-2) aspirin 81 mg tablet,delayed 162 mg PO QAM 09/25/21 05/27/23 History release (Adult Low Dose Aspirin) donepezil 10 mg tablet 10 mg PO HS 09/25/21 05/27/23 History metoprolol succinate 25 mg 25 mg PO HS 09/25/21 05/27/23 History tablet,extended release 24 hr acetaminophen 650 mg tablet 650 mg PO QAM 10/23/21 05/27/23 History ascorbic acid (vitamin C) 1,000 mg 1 g PO QAM 10/23/21 05/27/23 History tablet (Vitamin C) latanoprostene bunod 0.024 % eye 1 drp ophthalmic (eye) HS 10/23/21 05/27/23 History drops (Vyzulta) calcium carbonate 500 mg calcium 500 mg PO QAM 09/25/22 05/27/23 History (1,250 mg) chewable tablet (Calcium 500) diphenhydramine 25 1 tab PO HS 12/03/22 05/27/23 History mg-acetaminophen 500 mg tablet (Tylenol PM Extra Strength) losartan 25 mg tablet 25 mg PO DAILY 05/27/23 05/27/23 History Past Med/Surg History Medical History (Updated 05/27/23 @ 15:21 by Gianni Tobar MD) Emphysema lung noted on 04/[address] Heart failure EF 35% Atrial fibrillation post-operative without recurrence per cardio records History of blood transfusion 2014 Gastric ulcer Cardiomyopathy EF 35% Neuropathy GERD (gastroesophageal reflux disease) Alzheimer disease CKD (chronic kidney disease) stage 3, GFR 30-59 ml/min no specialist Deformity of both feet r/t arthritis - able to ambulate with use of cane for long distance History of jaundice as a child no problems since. Glaucoma Myocardial Infarction r/t a vessel rupture ~. Hypertension Hyperlipidemia Surgical History (Updated 12/11/22 @ 11:11 by Teresa Easley RN) Hx of oral surgery (12/11/22) p Removal of Large Bony Mass Palate/Lesion - Yasmany Truong DMD s Extraction of Erupted Teeth x29, Closure of Palatal Soft Tissue Defect, Denture Splint - Yasmany Truong DMD History of esophagogastroduodenoscopy (EGD) History of bilateral tubal ligation History of colonoscopy last 06/25/[address] [facility] History of cataract surgery bilateral History of open heart surgery VSD repair 05/2013 and 03/2016, mitral and tricuspid valve repairs H/O heart artery stent 2 CHUN RCA 05/2013 Family History Mother Heart disease Other No family history of adverse response to anesthesia Social History (Updated 09/25/22 @ 12:59 by Teresa Easley RN) Smoking Status: Never smoker Second Hand Exposure: No; Do You Dip or Chew Tobacco: No; Hx Alcohol Use: No Hx Substance Use: No Preferred Language: Telugu Communication Ability: Effective Visual Impairment: No Limitations Extrusion Press Supervisor Required: No Beliefs That Will Affect Care: None marital status: Current Living Situation: Spouse current occupational status: retired Feels Safe at Home: Yes Diet: low salt Assistive Devices: Cane, Glasses and Walker Physical Exam Physical Exam: General: A&O to name, place, and season. Not oriented to year. NAD. Cooperative. HEENT: Atraumatic, normocephalic. PERLAA. Appears fatigued. MM tacky. Pulm: CTAB A&P. -wheezes, -rales, -rhonchi. Symmetrical chest rise. No increased work of breathing. No respiratory distress. Cardiac: RRR, +sm. Radial pulses intact and symmetrical. Abdominal: Nontender, nondistended, soft. BS present. Ext: 2+ LE edema. NT. Automatic Thread Winder, hip flexion, ankle dorsi/plantarflexion intact and symmetrical but easily fatigued. Results & Data Results & Data Vital Signs (Past 12 Hours) Vital Signs Temp Pulse Resp BP Pulse Ox O2 Del Method 05/27/23 12:31 74 23 108/48 L 99 Room Air 05/27/23 12:15 74 18 85/40 L 98 Room Air 05/27/23 12:00 73 19 85/54 L 97 Room Air 05/27/23 11:58 76 19 83/50 L 98 Room Air 05/27/23 11:51 15 85/44 L 05/27/23 11:31 83 24 94/56 L 05/27/23 11:20 83/54 L 05/27/23 11:20 76 17 98 05/27/23 11:19 78 05/27/23 11:15 96/51 L 05/27/23 11:06 36.4 C 84 20 75/40 L PG Care Time/CCT Total # of Minutes Spent Total Time Spent with Patient: Total time spent is greater than 50% in coordination of care (as documented) at patient's floor/unit and/or counseling patient: Coding Level of Care Code 56783 INT INP/OBS CARE 3/75MIN Diagnoses Sepsis A41.9 UTI (urinary tract infection) N39.0 Protein calorie malnutrition E46 Elevated troponin R79.89 Cardiomyopathy I42.9 Fall W19.XXXA Rhabdomyolysis M62.82 GERD (gastroesophageal reflux disease) K21.9
[2023-05-27] MEDS ORDERED: ACETAMINOPHEN 325 MG TAB PO PRN (13:56)
[2023-05-27 14:29] LABS: Influenza A virus by PCR Negative (Neg); Influenza B virus by PCR Negative (Neg); RSV by PCR Negative (Neg); SARS CoV2 RNA(COVID-19) Ceph NEGATIVE (Negative)
[2023-05-27] MEDS: POTASSIUM CHLORIDE 20 MEQ/15 ML UDC PO STA (14:59)
[2023-05-27] MEDS: PLASMA-LYTE A 500 ML IV ONE (14:59)
--- NOTE | 2023-05-27 17:19 | XCELERA ---
[id number]
[2023-05-27] MEDS: PLASMA-LYTE A 1,000 ML IV SCH (20:09)
[2023-05-27] MEDS: METOPROLOL SUCC 25MG EXT REL TAB PO SCH (22:21)
[2023-05-27] MEDS: DONEPEZIL HCL 10 MG TAB PO SCH (22:21)
[2023-05-27] MEDS: PANTOprazole 40 MG TAB PO SCH (22:21)
[2023-05-27] MEDS: ATORVASTATIN 40 MG TAB PO SCH (22:22)
[2023-05-28] MEDS ORDERED: MENTHOL-ZINC OXIDE 360 APPLN/120 GM TUBE EXT SCH (00:30)
--- NOTE | 2023-05-28 06:01 | Electrocardiogram Report ---
Test Reason : Blood Pressure : / mmHG Vent. Rate : 082 BPM Atrial Rate : 082 BPM P-R Int : 186 ms QRS Dur : 096 ms QT Int : 454 ms P-R-T Axes : 073 100 137 degrees QTc Int : 530 ms Poor data quality, interpretation may be adversely affected Normal sinus rhythm Rightward axis Anteroseptal infarct , age undetermined Prolonged QT Abnormal ECG When compared with ECG of 21-MAY-2013 09:08, ST no longer elevated in Inferior leads QT has lengthened Anteroseptal infarct is now Present T wave inversion now evident in Lateral leads Confirmed by Randal Montgomery ([id number]) on 05/28/2023 6:00:55 AM Referred By: Confirmed By:Randal Montgomery
--- NOTE | 2023-05-28 07:43 | Hospitalist Progress Note ---
Date of Service May 28, 2023 Assessment & Plan (1) Sepsis: Plan: Hypotension, sepsis from a urinary source, cultures obtained on Ceftriaxone uti poa CTA/P: No acute findings. Elevated lactic acid improved after treatment (2) Elevated troponin: Plan: Elevated troponin with history of CAD( VSD repair 2013, repeat VSD repair 2015 due to patch failure, mitral valve repair with Saint Dipak angioplasty ring and RCA stent) pre admission HFrEF managed by [facility] cardiology usually not on diuretic, on metoprolol and lostatan Troponin 2231 ->1566, lateral t wave inversions, concern for type 2 mi Echo with worsened EF now 25-35%, global hypokinesis with dyskinesis of basal and inferior wall look for Guideline based therapy Periprocedural atrial flutter without recurrence (3) Protein calorie malnutrition: Plan: severe protein-calorie malnutrition Protein Calorie Malnutrition, weight loss, BMI 17 -Patient reports she has very poor p.o. intake, both due to low appetite and also had temporary falls due to recent oral surgery had been drinking exclusively Ensure for an extended period of time. 40 pounds weight loss in the preceding months. Is 47.6 kg, BMI 20.5 on admission (4) Lung mass: Plan: 1.9 left apical ground glass abnormality seen, right apical 6mm also present concerning with weight loss elevated calcium, if remains up consider pth and pth rp (5) Fall: Plan: Mechanical Fall on presentation, CT does not show skeletal injury- CThead and CTC-spine without acute findings could not get up, mildly elevated CK( mild Rhabdomyolysis) (6) GERD (gastroesophageal reflux disease): Plan: History of gastric ulcer Aspirin continued 81 mg daily PPI has been continued since last November. Denies recent epigastric pain or GI bleeding. Plan CODE: DNR/DNI, OK with pressors in ICU if indicated. DVT PPX: heparin sc Admission and Anticipated Discharge Date Admission Date: May 27, 2023 Subjective pt is pleasant but weakened, she has no focal complaints endorses diffculty eating food that is not soft, she eat chocolate ice cream for me Physical Exam Physical Exam: awake and alert c/o difficulty swallowing cardiac is regular with murmur no c/o dysuria continued diarrhea Results & Data Results & Data Vital Signs (Past 12 Hours) Vital Signs Temp Pulse Pulse Resp BP Pulse Ox O2 Del Method 05/28/23 02:58 98.4 F 74 20 94/59 L 97 Room Air 05/27/23 23:31 98.1 F 71 16 93/60 L 98 Room Air 05/27/23 21:44 98.6 F 89 18 94/60 L Room Air 05/27/23 21:30 77 05/27/23 21:00 Room Air 05/27/23 20:00 61 18 102/51 L 98 Room Air 05/27/23 19:35 81 Laboratory Results reviewed cbc reviewed chemistry PG Care Time/CCT Total # of Minutes Spent Total Time Spent with Patient: Total time spent is greater than 50% in coordination of care (as documented) at patient's floor/unit and/or counseling patient: Coding Level of Care Code 75780 SUB INP/OBS CARE 3/50MIN Diagnoses Sepsis A41.9 Elevated troponin R79.89 Protein calorie malnutrition E46 Lung mass R91.8 Fall W19.XXXA GERD (gastroesophageal reflux disease) K21.9
[2023-05-28 08:14] LABS: Basophils # (auto) 0.05 K/uL (0.00-0.20); Basophils % (auto) 0.4 %; Eosinophils # (auto) 0.04 K/uL (0.00-0.50); Eosinophils % (auto) 0.4 %; Hematocrit (blood only) 34.4 % (37.0-47.0); Hemoglobin 11.8 g/dl (12.0-16.0); Immature Granulocytes # (auto) 0.04 K/uL (0.01-0.20); Immature Granulocytes % (auto) 0.4 %; Lymphocytes # (auto) 1.97 K/uL (1.20-3.40); Lymphocytes % (auto) 17.6 %; Mean Corpuscular Hgb Conc 34.3 g/dL (32.0-36.0); Mean Corpuscular Volume 96.1 fL (80.0-100.0); Monocytes # (auto) 1.11 K/uL (0.11-0.59); Monocytes % (auto) 9.9 %; Neutrophils # (auto) 7.96 K/uL (1.40-6.50); Neutrophils % (auto) 71.3 %; Platelet Count 184 K/uL (130-400); RDW Coefficient of Variation 13.8 % (11.5-14.5); RDW Standard Deviation 48.7 fL (36.4-46.3); Red Blood Count 3.58 M/uL (4.20-5.40); White Blood Count 11.17 K/ul (4.8-10.8)
[2023-05-28 08:30] LABS: BUN Creatinine Ratio 19.5 (10-20); Calcium 10.1 mg/dl (8.6-10.3); Creatinine Clr Calc Pharmacy 40.2 ml/min; Est GFR (African American) 83.3 ml/min; Est GFR (Non-African American) 71.9 ml/min; Potassium 3.6 mmol/L (3.5-5.1)
[2023-05-28] MEDS: ASPIRIN 81 MG ECTAB PO SCH (09:10)
[2023-05-28] MEDS: DICLOFENAC SOD 1% GEL 100 GM TUBE EXT SCH (09:10)
[2023-05-28] MEDS: CALCIUM CARBONATE 1250MG TAB PO SCH (09:10)
[2023-05-28] MEDS: MULTIVITAMIN TAB PO SCH (09:10)
[2023-05-28] MEDS: CETIRIZINE HCL 10 MG TABLET PO SCH (09:10)
[2023-05-28] MEDS: CHOLECALCIFEROL 25 MCG (1000 UNITS) TAB PO SCH (09:10)
[2023-05-28] MEDS: ASCORBIC ACID 500 MG TAB PO SCH (09:10)
[2023-05-28] MEDS: TIMOLOL MALEATE 0.5% OP SOLN 5 ML BTL OP SCH (09:11)
[2023-05-28] MEDS: cefTRIAXone SODIUM 1,000 MG in DEXTROSE 5 % MINI-B 50 ML IV SCH (13:02)
--- NOTE | 2023-05-29 07:30 | Hospitalist Progress Note ---
Date of Service May 29, 2023 Assessment & Plan (1) Sepsis: Plan: Hypotension, sepsis from a urinary source, cultures obtained on Ceftriaxone - sepsis resolved uti poa pansensitive e coli and alpha strep not enterococcus metabolic encephalopathy present on admission now improving CTA/P: No acute findings. Elevated lactic acid improved after treatment (2) Elevated troponin: Plan: Elevated troponin with history of CAD( VSD repair 2013, repeat VSD repair 2016 due to patch failure, mitral valve repair with Saint Dipak angioplasty ring and RCA stent) pre admission HFrEF managed by [facility] cardiology usually not on diuretic, on metoprolol and lostatan Troponin 2231 ->1566, lateral t wave inversions, concern for type 2 mi Echo with worsened EF now 25-35%, global hypokinesis with dyskinesis of basal and inferior wall look for Guideline based therapy Periprocedural atrial flutter without recurrence (3) Protein calorie malnutrition: Plan: severe protein-calorie malnutrition Protein Calorie Malnutrition, weight loss, BMI 17 -Patient reports she has very poor p.o. intake, both due to low appetite and also had temporary falls due to recent oral surgery had been drinking exclusively Ensure for an extended period of time. 40 pounds weight loss in the preceding months. Is 47.6 kg, BMI 20.5 on admission did have speech eval which she has passed, will attempt to escalate diet and control diarrhea (4) Lung mass: Plan: 1.9 left apical ground glass abnormality seen, right apical 6mm also present concerning with weight loss elevated calcium, if remains up consider pth and pth rp (5) Fall: Plan: Mechanical Fall on presentation, CT does not show skeletal injury- CThead and CTC-spine without acute findings could not get up, mildly elevated CK( mild Rhabdomyolysis) (6) GERD (gastroesophageal reflux disease): Plan: History of gastric ulcer Aspirin continued 81 mg daily PPI has been continued since last November. Denies recent epigastric pain or GI bleeding. Plan CODE: DNR/DNI, OK with pressors in ICU if indicated. DVT PPX: heparin sc Admission and Anticipated Discharge Date Admission Date: May 27, 2023 Subjective Met with patient and . He has large concerns of the patient's eating and her diarrhea. Her diarrhea has been a significant issue at home which she has been existing on Ensure for 4 months. Her diarrhea likely directly led to a urinary tract infection which caused her admission. Patient had a swallowing evaluation and she is able to eat foods with good encouragement. Subsequently we will institute a diet and attempts at controlling her diarrhea pending pcr to have infectious etiologies ruled out cautious use of Imodium and add Metamucil Physical Exam Physical Exam: awake and alert c/o difficulty swallowing cardiac is regular with murmur no c/o dysuria continued diarrhea Results & Data Results & Data Vital Signs (Past 12 Hours) Vital Signs Temp Pulse Pulse Resp BP BP Pulse Ox 05/29/23 04:46 76 05/29/23 03:28 98.2 F 75 16 104/61 98 05/28/23 23:00 97.7 F 83 16 101/62 94 O2 Del Method 05/29/23 04:46 05/29/23 03:28 Room Air 05/28/23 23:00 Room Air Laboratory Results review cbc review chemistry, hypokalemia replete po PG Care Time/CCT Total # of Minutes Spent Total Time Spent with Patient: Total time spent is greater than 50% in coordination of care (as documented) at patient's floor/unit and/or counseling patient: Coding Level of Care Code 40398 SUB INP/OBS CARE 2/35MIN Diagnoses Sepsis A41.9 Elevated troponin R79.89 Protein calorie malnutrition E46 Lung mass R91.8 Fall W19.XXXA GERD (gastroesophageal reflux disease) K21.9
[2023-05-29 09:22] LABS: Basophils # (auto) 0.04 K/uL (0.00-0.20); Basophils % (auto) 0.6 %; Eosinophils # (auto) 0.09 K/uL (0.00-0.50); Eosinophils % (auto) 1.3 %; Hematocrit (blood only) 30.9 % (37.0-47.0); Hemoglobin 10.6 g/dl (12.0-16.0); Immature Granulocytes # (auto) 0.02 K/uL (0.01-0.20); Immature Granulocytes % (auto) 0.3 %; Lymphocytes # (auto) 1.72 K/uL (1.20-3.40); Lymphocytes % (auto) 25.2 %; Mean Corpuscular Hemoglobin 32.9 pg (25.0-34.0); Mean Corpuscular Hgb Conc 34.3 g/dL (32.0-36.0); Mean Platelet Volume 11.2 fL (9.4-12.4); Monocytes # (auto) 0.84 K/uL (0.11-0.59); Monocytes % (auto) 12.3 %; Neutrophils # (auto) 4.12 K/uL (1.40-6.50); Neutrophils % (auto) 60.3 %; Platelet Count 161 K/uL (130-400); RDW Coefficient of Variation 13.9 % (11.5-14.5); RDW Standard Deviation 49.1 fL (36.4-46.3); Red Blood Count 3.22 M/uL (4.20-5.40); White Blood Count 6.83 K/ul (4.8-10.8)
[2023-05-29 09:35] LABS: BUN Creatinine Ratio 19.7 (10-20); Calcium 9.5 mg/dl (8.6-10.3); Creatinine Clr Calc Pharmacy 47.7 ml/min; Est GFR (African American) 95.3 ml/min; Est GFR (Non-African American) 82.3 ml/min; Potassium 3.3 mmol/L (3.5-5.1)
[2023-05-29] MEDS: LOPERAMIDE HCL 2 MG CAP PO PRN (12:10)
[2023-05-29] MEDS: PSYLLIUM or GUAR GUM FIBER POWDER PACKET PO SCH (15:28)
[2023-05-30 06:48] LABS: Basophils # (auto) 0.04 K/uL (0.00-0.20); Basophils % (auto) 0.7 %; Eosinophils # (auto) 0.13 K/uL (0.00-0.50); Eosinophils % (auto) 2.2 %; Hematocrit (blood only) 32.9 % (37.0-47.0); Hemoglobin 11.4 g/dl (12.0-16.0); Immature Granulocytes # (auto) 0.01 K/uL (0.01-0.20); Immature Granulocytes % (auto) 0.2 %; Lymphocytes # (auto) 1.71 K/uL (1.20-3.40); Lymphocytes % (auto) 28.7 %; Mean Corpuscular Hgb Conc 34.7 g/dL (32.0-36.0); Mean Corpuscular Volume 95.4 fL (80.0-100.0); Mean Platelet Volume 11.3 fL (9.4-12.4); Monocytes # (auto) 0.81 K/uL (0.11-0.59); Monocytes % (auto) 13.6 %; Neutrophils # (auto) 3.25 K/uL (1.40-6.50); Neutrophils % (auto) 54.6 %; Platelet Count 148 K/uL (130-400); RDW Coefficient of Variation 13.8 % (11.5-14.5); RDW Standard Deviation 48.2 fL (36.4-46.3); Red Blood Count 3.45 M/uL (4.20-5.40); White Blood Count 5.95 K/ul (4.8-10.8)
[2023-05-30 07:10] LABS: Calcium 9.5 mg/dl (8.6-10.3); Creatinine Clr Calc Pharmacy 57.5 ml/min; Est GFR (African American) 100.6 ml/min; Est GFR (Non-African American) 86.8 ml/min; Potassium 3.4 mmol/L (3.5-5.1)
--- NOTE | 2023-05-30 13:21 | Discharge Summary ---
Date of Service May 30, 2023 Admission HPI Per Admitting Provider Joseline is a 83-year-old female with a past medical history of Alzheimer's, CKD, CAD who presented from [facility] with weakness and a backwards fall landing on her butt without head injury. She has had 40 pounds of weight loss in the previous few months, has been with gradually decreasing strength, and is hypotensive on arrival in the ER. Seen at the bedside with her present. Denies chest pain, chest pre ssure, shortness of breath. Has had some leg swelling. Endorses polyuria and gets up several times at night to use the bathroom. Denies dysuria. Has also had several loose bowel movements daily, notes that her diet since November has been just to ensure due to having orthodontic procedures performed and dentures revised. She now has full dentures and can progress to a regular diet but has had a poor appetite. Denies fever/chills. Has a history of reduced ejection fraction but has never had clinical heart failure per patient. Denies chest pain at any point. No palpitations. She feels overall she is just gradually worsening and getting progressively weaker with poor appetite. Denies any sudden worsening in the last week or 2, feels this been a gradual decline. She is seen at the bedside with her who gives collateral history. Denies tick bites, skin infections. No cough or sputum production. Denies abdominal pain. Medical History: Reviewed Medications: Reviewed Surgical History: Reviewed Family history: Reviewed Allergies: Reviewed Social History: Denies tobacco/etoh Code Status: DNR/DNI Principal Diagnosis metabolic encephalopathy urinary tract infection present on admission diarrhea abnormal CT chest Discharge Exam awake and alert lungs are clear eating puree food during visit Discharge Data Allergies Allergy/AdvReac Type Severity Reaction Status Date / Time adhesive Allergy Mild REDENNED Verified 05/27/23 14:03 FROM CERTAIN TYPES Penicillins Allergy Mild RASH Verified 05/27/23 14:03 lisinopril AdvReac Cough Verified 05/27/23 14:03 Consultations 05/27/23 13:06 ED Decision to Admit Stat Ordered Studies Abdomen/Pelvis CT 05/27/23 11:[address] WITH IV CONTRAST CT DOSE: HISTORY: Trauma TECHNIQUE: Multiaxial CT images of the abdomen and pelvis were performed following the use of intravenous contrast. A dose lowering technique was utilized adhering to the principles of ALARA. COMPARISON STUDY: None. FINDINGS: The lung bases will be reported on the same day chest CT. There is apparent surgical material along the undersurface of the heart. This is unchanged since prior CT. No pneumatosis, free air or portal venous gas is present. Water attenuation hepatic lesions measure up to 3.5 cm. These suggest cysts. There is no biliary ductal dilatation status post cholecystectomy. The spleen, adrenal glands and pancreas are unremarkable. No peripancreatic infiltra tion is present. Several right renal cysts are present. There is no hydronephrosis. No evidence for a bowel obstruction. The appendix is not visualized. No right lower quadrant inflammation is present. Sigmoid diverticulosis is noted without evidence for acute diverticulitis. There is no ascites or lymphadenopathy. Extensive atherosclerotic plaque of the abdominal aorta is noted. Old T11, T12 and L1 compression fractures are shown on prior CT. The bladder is decompressed and not well evaluated. There is mild body wall edema. The uterus and adnexa are unremarkable. IMPRESSION: 1. No acute process within the abdomen or pelvis. 2. No bowel obstruction. No bowel wall thickening. 3. Colonic diverticulosis. No evidence for acute diverticulitis. 4. Additional findings as described above. Electronically signed by: Krishna Cervantes M.D. 05/27/2023 12:[address] 05/27/23 11:[address] DOSE: HISTORY: Neck pain. Trauma TECHNIQUE: Multiaxial CT images of the cervical spine were performed and reformatted in the sagittal and coronal plane without the use of contrast. A dose lowering technique was utilized adhering to the principles of ALARA. COMPARISON: Cervical spine CT 09/15/2020. FINDINGS: No fractures. Prevertebral soft tissues and the C1-C2 interval are intact. No pneumothorax. Mild reversal of the normal lordotic curvature. The C2- C3 facets are fused. Severe disc space narrowing at C6-C7. Stepwise anterolisthesis at C4-C5 and C5-C6, unchanged. IMPRESSION: No fractures within the cervical spine. Electronically signed by: Krishna Cervantes M.D. 05/27/2023 12:[address] 05/27/23 11:05 CT SCAN OF THE CHEST WITH IV CONTRAST CLINICAL HISTORY: Trauma. COMPARISON STUDY: Chest CT scans dated 04/16/2022 and 09/15/2020. TECHNIQUE: Following the IV administration of 91 cc of Optiray 320, CT scan of the thorax was performed from the thoracic inlet to the upper abdomen. Images are reviewed in the axial, sagittal, and coronal planes. IV contrast was administered without complication. A dose lowering technique was utilized adhering to the principles of ALARA. CT DOSE: 1606. mGy.cm FINDINGS: Thyroid: Imaged portions of the thyroid gland are normal in size and attenuation. Thoracic aorta: There is atherosclerotic calcification of the thoracic aorta, wh ich is normal in caliber and demonstrates bovine variant arch anatomy. No dissection is seen. Pulmonary vasculature: The pulmonary trunk is normal in caliber. There are no filling defects identified in the central pulmonary vessels to indicate pulmonary embolus. Note that this examination was not protocoled for evaluation of the pulmonary arteries. Heart: The patient is status post midline sternotomy. There is evidence of previous mitral and tricuspid valve surgery. The heart is enlarged and without pericardial effusion. The coronary arteries are densely calcified. Lungs and pleural spaces: There is no airspace consolidation, pleural effusion, or pneumothorax. The trachea and central airways are clear. Mild scarring/atelectasis is seen at the lung bases. A 1.9 cm groundglass lesion is again seen at the left apex on image #57. A 6 mm groundglass nodule is again seen at the right apex is again seen on image #44. Mediastinum: There is no mediastinal hematoma or lymphadenopathy. Lilibeth: Clear. Axillae: There is no axillary lymphadenopathy. Upper abdomen: Cholecystectomy clips are noted. There is asymmetric cortical atrophy of the left kidney as compared to the right. Scattered renal cysts measure up to 2 cm. Hepatic cysts measure up to 3.4 cm. Skeletal structures: The skeletal structures are osteopenic. No acute fracture is seen. There are chronic compression deformities of T12, L1, and L2. Degenerative change is noted in the shoulders and spine. No lytic or blastic bony lesions are seen. IMPRESSION: 1. There is no acute posttraumatic intrathoracic abnormality. 2. There is no airspace consolidation, pleural effusion, or pneumothorax. 3. Cardiomegaly. 4. A 1.9 cm groundglass lesion is again seen at the left apex. This remains highly suspicious for low-grade adenomatous lesion. A 6 mm groundglass nodule at the right apex is also unchanged. Nonemergent follow-up with pulmonology is recommended. 5. No acute fracture is seen. 6. Additional findings as above. Electronically signed by: Talat Smith M.D. 05/27/2023 12:[address] 05/27/23 11:05 CT OF THE HEAD WITHOUT CONTRAST CLINICAL HISTORY: Trauma COMPARISON STUDY: MRI of the brain August 22, 2020. Head CT September 15, 2020. TECHNIQUE: Helical axial images of the head were obtained without IV contrast. Automated exposure control was utilized for the study. A dose lowering technique was utilized adhering to the principles of ALARA. FINDINGS: No acute intracranial hemorrhage, midline shift or mass effect is present. White matter hypodensities are similar to prior exam and suggest small vessel disease. There is mild atrophy. The ventricular system is unremarkable. The basal cisterns are patent. No extra-axial collections are present. There are no findings to suggest acute dural sinus thrombosis or acute territorial infarct. No significant calvarial abnormalities are present. Visualized portions of the sinuses and mastoid air cells are clear. IMPRESSION: 1. No acute intracranial findings. 2. No calvarial fractures. Electronically signed by: Arturo Tee M.D. 05/27/2023 11:56 AM Hospital Course (1) Sepsis: Hypotension, sepsis from a urinary source, cultures obtained on Ceftriaxone - sepsis resolved - discharged on cefdinir uti poa pansensitive e coli and alpha strep not enterococcus metabolic encephalopathy present on admission now improving CTA/P: No acute findings., CT chest with some ground glass changes not defined, will need follow up Elevated lactic acid improved after treatment (2) Elevated troponin: Elevated troponin with history of CAD( VSD repair 2013, repeat VSD repair 2015 due to patch failure, mitral valve repair with Saint Dipak angioplasty ring and RCA stent) pre admission HFrEF managed by [facility] cardiology usually not on diuretic, on metoprolol held lostatan due to lower blood pressure Troponin 2231 ->1566, lateral t wave inversions, concern for type 2 mi Echo with worsened EF now 25-35%, global hypokinesis with dyskinesis of basal and inferior wall look for Guideline based therapy Periprocedural atrial flutter without recurrence (3) Protein calorie malnutrition: severe protein-calorie malnutrition Protein Calorie Malnutrition, weight loss, BMI 17 -Patient reports she has very poor p.o. intake, both due to low appetite and also had temporary falls due to recent oral surgery had been drinking exclusively Ensure for an extended period of time. 40 pounds weight loss in the preceding months. Is 47.6 kg, BMI 20.5 on admission did have speech eval which she has passed, will attempt to escalate diet and control diarrhea with sliding scale Imodium, encouraged to blend foods to have puree consistency until her mouth heals (4) Lung mass: 1.9 left apical ground glass abnormality seen, right apical 6mm also present concerning with weight loss recommend outpt follow up imaging (5) Fall: Mechanical Fall on presentation, CT does not show skeletal injury- CThead and CTC-spine without acute findings at home could not get up, mildly elevated CK( mild Rhabdomyolysis)- resolved (6) GERD (gastroesophageal reflux disease): History of gastric ulcer Aspirin continued 81 mg daily PPI has been continued since last November. Denies recent epigastric pain or GI bleeding. Plan CODE: DNR/DNI, OK with pressors in ICU if indicated. Total Time Total Time Spent Total Time Spent (In Minutes): It required greater than 30 minutes to prepare this patient for discharge. Discharge Plan Discharge Items Patient Disposition: Home - Home Health Services Reason For Visit: UTI, SEPSIS Discharge Diagnosis: urinary tract infection present on admission diarrhea from ensure that contributed to urinary infection confusion from urinary infection - resolved Activity: Resume your previous activity Non-emergency contact: Primary Care Provider Call non-emergency contact if: your symptoms worsen Follow-up/Referrals: Emelina Fu [Primary Care Provider] - Diet: Regular Diet Texture: Pureed (blended smooth) Addtl Attending Provider Instructions: Please have ongoing speech therapy treatment when you return to [facility] Please complete your antibiotics to treat your urinary infection Please control your diarrhea by using Imodium, you should try to have no more than 2 bowel movements a day, if you have more take Imodium if you have no bowel movements do not take Imodium. Strongly consider using a compressor mechanic bus to make food soft enough to eat and only use ensure once or twice a day, keep well hydrated and consider taking a multiple vi tamin a day Addtl Plant Controller Provider Instructions: Your CT scan did have a small change noticed on admission, this is not described well and you will need a follow up Cat scan of your chest in 2 months, please discuss this with your family doctor Pending Studies at Discharge: No Stand-Alone Forms: My [facility], Smoking Cessation Medications and DC Order Prescriptions: New cefdinir 300 mg capsule 300 mg PO BID Qty: 8 0RF loperamide 2 mg Capsule 2 mg PO Q6H PRN (Reason: loose stool) Qty: 1 0RF Psyllium Or Guar Gum Fiber Sup [Metamucil Or Nutrisource Fiber Supplement] 1 pkg PO QAM Qty: 1 0RF Continued metoprolol succinate 25 mg tablet extended release 24 hr 25 mg PO HS aspirin [Adult Low Dose Aspirin] 81 mg tablet,delayed release (DR/EC) 162 mg PO QAM donepezil 10 mg tablet 10 mg PO HS calcium carbonate [Calcium 500] 500 mg calcium (1,250 mg) tablet,chewable 500 mg PO QAM multivitamin Tablet 1 tab PO QAM cetirizine [Zyrtec] 10 mg Tablet 10 mg PO QAM pantoprazole 40 mg Tablet,Delayed Release (Dr/Ec) 40 mg PO HS timolol maleate 0.5 % Drops 1 drp OPHTHALMIC (EYE) QAM cholecalciferol (vitamin D3) [Vitamin D3] 25 mcg (1,000 unit) Capsule 25 mcg PO QAM PreserVision AREDS-2 250-90-40-1 mg Capsule 2 tab PO QAM atorvastatin 40 mg Tablet 40 mg PO HS acetaminophen 650 mg Tablet 650 mg PO QAM Vyzulta 0.024 % Drops 1 drp OPHTHALMIC (EYE) HS Discontinued ascorbic acid (vitamin C) [Vitamin C] 1,000 mg Tablet 1 g PO QAM diphenhydramine-acetaminophen [Tylenol PM Extra Strength] 25-500 mg Tablet 1 tab PO HS losartan 25 mg tablet 25 mg PO DAILY Discharge Orders: Discharge Order (Routine); Ordered 05/30/23 Ordered By: Ari Nieves Admission Data Admit Date/Time: 05/27/23 19:12 Attending Provider: Ari Nieves Admit Provider: Gianni Tobar Primary Care Provider: Emelina Fu Other Providers: Gianni Tobar Coding Level of Care Code 52102 INP/OBS DISCH >30 MIN Diagnoses Sepsis A41.9 Elevated troponin R79.89 Protein calorie malnutrition E46 Lung mass R91.8 Fall W19.XXXA GERD (gastroesophageal reflux disease) K21.9
== END 2023-05-30 16:07 | disposition home health service (06) | DRG 871 ==
LOC: ED 10:58 → SUATTDRO 19:12 → 2S 19:12
DX: I42.9 Cardiomyopathy, unspecified; I25.2 Old myocardial infarction; E43 Unspecified severe protein-calorie malnutrition; N39.0 Urinary tract infection, site not specified; A41.51 Sepsis due to Escherichia coli [E. coli]; I25.10 Atherosclerotic heart disease of native coronary artery without angina pectoris; F02.80 Dementia in other diseases classified elsewhere, unspecified severity, without behavioral disturbance, psychotic disturbance, mood disturbance, and anxiety; I13.0 Hypertensive heart and chronic kidney disease with heart failure and stage 1 through stage 4 chronic kidney disease, or unspecified chronic kidney disease; Z79.82 Long term (current) use of aspirin; W18.39XA Other fall on same level, initial encounter; N18.30 Chronic kidney disease, stage 3 unspecified; I21.A1 Myocardial infarction type 2; R63.4 Abnormal weight loss; R91.8 Other nonspecific abnormal finding of lung field; G93.41 Metabolic encephalopathy; Z66 Do not resuscitate; M62.82 Rhabdomyolysis; Y92.89 Other specified places as the place of occurrence of the external cause; Z87.74 Personal history of (corrected) congenital malformations of heart and circulatory system; G30.9 Alzheimer's disease, unspecified; Z68.1 Body mass index [BMI] 19.9 or less, adult; K21.9 Gastro-esophageal reflux disease without esophagitis; I48.92 Unspecified atrial flutter; Z88.0 Allergy status to penicillin; I50.20 Unspecified systolic (congestive) heart failure

== ENCOUNTER 2023-05-31 16:36 | Inpatient (IN) ==
--- NOTE | 2023-05-31 16:52 | Emergency Department Note ---
Impression & Plan STEMI (ST elevation myocardial infarction), Acute hypotension, Hypomagnesemia ED Provider Note HISTORY OF PRESENT ILLNESS: Patient is an 83-year-old female presenting with hypotension. Patient was reportedly at a follow-up appointment after her discharge from the hospital yesterday and found to be hypotensive with a blood pressure in the 60s systolic. She reports that she did feel slightly lightheaded at her clinic appointment. 911 was called. On EMS arrival, her blood pressure was in the 60s. She was given about 500 cc of fluid prehospital. Arrival to the ER, the patient reports feeling well. She denies any chest pain or shortness of breath. Denies any nausea or vomiting. ROS: as above PHYSICAL EXAM: Constitutional: Patient appears in no acute distress. HENT: Head: Normocephalic and atraumatic. Eyes: EOMI, PERRL Mouth/Throat: Mucous membranes moist. Neck: Trachea midline. Neck supple. Cardiovascular: RRR, No murmurs, rubs or gallops. Intact distal pulses. Pulmonary/Chest: No respiratory distress. Breath sounds clear and equal bilaterally. No wheezes or rales. Abdominal: Abdomen soft, no tenderness, rebound or guarding. Musculoskeletal: No edema, tenderness or deformity noted. Skin: Warm and dry. No rash, erythema, pallor or cyanosis Psychiatric: Appropriate mood and affect for situation. Neurological: Alert and keenly responsive. CN II-XII grossly intact, moving all extremities equally and fully. MDM: - Vitals signs showed borderline hypotension. - History obtained via patient and EMS. Patient presents with hypotension. Patient reportedly was at a follow-up appointment visit after discharge from the hospital yesterday and found to be hypotensive with a blood pressure in the 60s. She was feeling slightly lightheaded at the appointment. They sent her to the emergency department and she got 500 cc of fluid and route with EMS for her hypotension. On arrival to the ER, the patient reports feeling well. - Chronic conditions affecting care: Alzheimer's; CKD; CAD (s/p PCI) - Differential diagnoses include, but are not limited to: ACS; UTI; pneumonia; dehydration; electrolyte abnormality - Order placed for continuous cardiac monitoring. At this time, monitor showed rate of 91 bpm with normal sinus rhythm, per my interpretation. - External medical records reviewed. Discharge summary dated 05/30/2023 was reviewed. Patient was just discharged from the hospital yesterday after being admitted for metabolic encephalopathy, UTI and diarrhea - EKG interpreted by myself showed normal sinus rhythm. Rate 90 bpm. QT 420. Noted to have acute ischemic changes. Significant ST depressions in leads I and aVL. Also noted to have elevations in lead III. - HEART alert activated at 17:01. Dr. Stephens, barrel painter, presented to bedside. He stated patient's "EKGs appear similar." Discussed significant changes noted, but he will not be taking patient to color laboratory technician as of 17:14. - Reviewed patient's chart further, and during her admission her troponin was elevated up to 1566. - Laboratory workup interpreted by myself showed normal WBC; anemia; stable electrolytes other than hypomagnesemia (Mg 1.2); elevated troponin (67.3) - Discussion was had with date night caregiver about patient's case and need for admission - Hospitalist consulted for admission - [facility] ASSESSMENT AND PLAN: Diagnosis: hypotension; STEMI; hypomagnesemia Plan: admit Past Med/Surg History Medical History (Updated 05/31/23 @ 18:12 by Vale Escoto MD) Emphysema lung noted on 04/[address] Heart failure EF 35% Atrial fibrillation post-operative without recurrence per cardio records History of blood transfusion 2014 Gastric ulcer Cardiomyopathy EF 35% Neuropathy GERD (gastroesophageal reflux disease) Alzheimer disease CKD (chronic kidney disease) stage 3, GFR 30-59 ml/min no specialist Deformity of both feet r/t arthritis - able to ambulate with use of cane for long distance History of jaundice as a child no problems since. Glaucoma Myocardial Infarction r/t a vessel rupture ~. Hypertension Hyperlipidemia Surgical History (Updated 12/11/22 @ 11:11 by Teresa Easley RN) Hx of oral surgery (12/11/22) p Removal of Large Bony Mass Palate/Lesion - Yasmany Truong DMD s Extraction of Erupted Teeth x29, Closure of Palatal Soft Tissue Defect, Denture Splint - Yasmany Truong DMD History of esophagogastroduodenoscopy (EGD) History of bilateral tubal ligation History of colonoscopy last 06/25/20 @ [facility] History of cataract surgery bilateral History of open heart surgery VSD repair 05/2013 and 03/2016, mitral and tricuspid valve repairs H/O heart artery stent 2 CHUN RCA 05/2013 Family History Mother Heart disease Other No family history of adverse response to anesthesia Social History (Updated 09/25/22 @ 12:59 by Teresa Easley, YOGESH) Smoking Status: Never smoker Second Hand Exposure: No; Do You Dip or Chew Tobacco: No; Hx Alcohol Use: No Hx Substance Use: No Preferred Language: Slovenian Communication Ability: Effective Visual Impairment: No Limitations Apparel Merchandiser Required: No Beliefs That Will Affect Care: None marital status: Current Living Situation: Spouse Current Living Situation Comment: with at [facility] current occupational status: retired Feels Safe at Home: Yes Diet: low salt Assistive Devices: Walker Allergies Allergies Allergy/AdvReac Type Severity Reaction Status Date / Time adhesive Allergy Mild REDENNED Verified 05/27/23 14:03 FROM CERTAIN TYPES Penicillins Allergy Mild RASH Verified 05/27/23 14:03 lisinopril AdvReac Cough Verified 05/27/23 14:03 Home Meds Home Medications Medication Instructions Recorded Confirmed cetirizine 10 mg tablet (Zyrtec) 10 mg PO QAM 12/19/17 05/31/23 multivitamin 1 tab PO QAM 12/19/17 05/31/23 pantoprazole 40 mg tablet,delayed 40 mg PO HS 12/19/17 05/31/23 release atorvastatin 40 mg tablet 40 mg PO HS 06/18/20 05/31/23 vit C 250 mg-vit E 90 mg-zinc 40 1 tab PO BID 06/18/20 05/31/23 mg-copper 1 dt-uiuqka-momiel capsule (PreserVision AREDS-2) aspirin 81 mg tablet,delayed 81 mg PO QAM 09/25/21 05/31/23 release (Adult Low Dose Aspirin) donepezil 10 mg tablet 10 mg PO HS 09/25/21 05/31/23 metoprolol succinate 25 mg 25 mg PO HS 09/25/21 05/31/23 tablet,extended release 24 hr latanoprostene bunod 0.024 % eye 1 drp OPB HS 10/23/21 05/31/23 drops (Vyzulta) losartan 25 mg tablet 25 mg PO DAILY 05/31/23 05/31/23 timolol maleate 0.5 % eye drops 1 drp OPB QAM 05/31/23 05/31/23 Previous Rx's Medication Instructions Recorded PSYLLIUM or GUAR GUM FIBER SUP 1 pkg PO QAM #1 box 05/30/23 [METAMUCIL or NUTRISOURCE FIBER SUPPLEMENT] cefdinir 300 mg capsule 300 mg PO BID #8 caps 05/30/23 loperamide 2 mg capsule 2 mg PO Q6H PRN loose stool #1 box 05/30/23 Results & Data (ED) Vital Signs Vital Signs - 24 hr 05/31/23 16:25 05/31/23 16:48 05/31/23 16:52 Temperature 36.5 C Temperature Source Temporal Artery Scan Pulse Rate 91 H 93 H 90 Respiratory Rate 20 23 Respiratory Effort / Characteristics Non-Labored Spontaneous Respiratory Depth Normal Blood Pressure 98/44 L Blood Pressure Mean 62 Pulse Oximetry 97 Oxygen Delivery Method Room Air Sepsis Recent Fever Within 48 Hours No Sepsis New/Unexplained Change in Mental Status No Sepsis Action Taken by Nursing No Action Required 05/31/23 17:00 05/31/23 17:07 05/31/23 17:07 Temperature Temperature Source Pulse Rate 89 91 H Respiratory Rate 23 18 Respiratory Effort / Characteristics Respiratory Depth Blood Pressure 112/67 Blood Pressure Mean 96 Pulse Oximetry 97 Oxygen Delivery Method Sepsis Recent Fever Within 48 Hours Sepsis New/Unexplained Change in Mental Status Sepsis Action Taken by Nursing Laboratory Data 05/31/23 16:55 05/31/23 16:55 Lab Results 05/31/23 05/31/23 Range/Units 16:55 17:05 WBC 6.26 (4.8-10.8) K/ul RBC 2.92 L (4.20-5.40) M/uL Hgb 9.7 L (12.0-16.0) g/dl Hct 28.3 L (37.0-47.0) % MCV 96.9 (80.0-100.0) fL MCH 33.2 (25.0-34.0) pg MCHC 34.3 (32.0-36.0) g/dL RDW Std Deviation 48.9 H (36.4-46.3) fL RDW Coeff of Sabrina 13.8 (11.5-14.5) % Plt Count 167 (130-400) K/uL MPV 11.9 (9.4-12.4) fL Immature Gran % (Auto) 0.2 % Neut % (Auto) 61.3 % Lymph % (Auto) 22.8 % Lea % (Auto) 14.1 % Eos % (Auto) 1.0 % Baso % (Auto) 0.6 % Neut # (Auto) 3.84 (1.40-6.50) K/uL Lymph # (Auto) 1.43 (1.20-3.40) K/uL Lea # (Auto) 0.88 H (0.11-0.59) K/uL Eos # (Auto) 0.06 (0.00-0.50) K/uL Baso # (Auto) 0.04 (0.00-0.20) K/uL Immature Gran # (Auto) 0.01 (0.01-0.20) K/uL PT Cancelled 10.9 INR Cancelled 1.0 Sodium 139 (136-145) mmol/L Potassium 3.9 (3.5-5.1) mmol/L Chloride 109 H (98-107) mmol/L Carbon Dioxide 26 (21-32) mmol/L Anion Gap 4 (3-11) BUN 18 (6-23) mg/dl Creatinine 0.67 (0.6-1.2) mg/dl Est Cr Clr Drug Dosing 48.8 ml/min Est GFR ( Amer) 94.9 ml/min Est GFR (Non-Af Amer) 81.9 ml/min BUN/Creatinine Ratio 26.9 H (10-20) Glucose 94 (70-99(Fasting)) mg/dl Calcium 9.4 (8.6-10.3) mg/dl Magnesium 1.2 L (1.7-2.4) mg/dl Total Bilirubin 0.5 (0.2-1.0) mg/dl AST 53 H (13-39) U/L ALT 30 (7-52) U/L Alkaline Phosphatase 49 (34-104) U/L Troponin I High Sens 67.3 H* (0-14) pg/ml Total Protein 4.6 L (6.0-8.3) gm/dl Albumin 2.4 L (3.4-5.0) gm/dl Globulin 2.2 L (2.5-4.0) gm/dl Albumin/Globulin Ratio 1.1 (0.9-2) Lipase 22 (11-82) U/L Administered Medications Discontinued Medications Aspirin (Aspirin Chew 324 Mg) Confirm Administered Dose 324 mg .ROUTE .STK-MED ONE Stop: 05/31/23 17:03 Last Admin: 05/31/23 17:10 Dose: Not Given Documented By: HS Aspirin (Aspirin Chew 324 Mg) 324 mg PO NOW STA Stop: 05/31/23 17:05 Last Admin: 05/31/23 17:10 Dose: Not Given Documented By: HS Fentanyl Citrate (Fentanyl Citrate Pf 100 Mcg/2 Ml Vial) Confirm Administered Dose 100 mcg .ROUTE .STK-MED ONE Stop: 05/31/23 17:11 Last Admin: 05/31/23 18:09 Dose: Not Given Documented By: HS Heparin Sodium (Porcine) (Heparin (Porcine) 1000 Unit/Ml 10 Ml (Warp Picker Use Only)) Confirm Administered Dose 10,000 units .ROUTE .STK-MED ONE Stop: 05/31/23 17:11 Last Admin: 05/31/23 18:09 Dose: Not Given Documented By: HS Heparin Sodium/Sodium Chloride (Heparin In Nss Infusion 1000 Unit/500 Ml (2 U/Ml) Bag) Confirm Administered Dose 3,000 units IV .STK-MED ONE Stop: 05/31/23 17:11 Last Admin: 05/31/23 18:09 Dose: Not Given Documented By: HS Ioversol (Optiray 350) Confirm Administered Dose 1 ml .ROUTE .STK-MED ONE Stop: 05/31/23 17:11 Last Admin: 05/31/23 18:09 Dose: Not Given Documented By: HS Midazolam HCl (Midazolam Hcl 1 Mg/Ml 2ml Vial) Confirm Administered Dose 2 mg .ROUTE .STK-MED ONE Stop: 05/31/23 17:11 Last Admin: 05/31/23 18:09 Dose: Not Given Documented By: HS Nicardipine HCl (Nicardipine Hcl Inj 2.5 Mg/Ml 10 Ml Amp) Confirm Administered Dose 25 mg .ROUTE .STK-MED ONE Stop: 05/31/23 17:11 Last Admin: 05/31/23 18:10 Dose: Not Given Documented By: HS Nitroglycerin/Dextrose (Nitroglycerin/D5w 100mcg/Ml 20ml Syr) Confirm Administered Dose 2,000 mcg .ROUTE .STK-MED ONE Stop: 05/31/23 17:11 Last Admin: 05/31/23 18:10 Dose: Not Given Documented By: HS Discharge Plan Visit Data Chief Complaint: Hypotension Stated Complaint: HYPOTENSION ED Provider: Vale Escoto Discharge Problem: STEMI (ST elevation myocardial infarction), Acute hypotension, Hypomagnesemia Forms Stand Alone Forms: [facility] Prescriptions Prescriptions: No Action metoprolol succinate 25 mg tablet extended release 24 hr 25 mg PO HS aspirin [Adult Low Dose Aspirin] 81 mg tablet,delayed release (DR/EC) 81 mg PO QAM donepezil 10 mg tablet 10 mg PO HS multivitamin Tablet 1 tab PO QAM cetirizine [Zyrtec] 10 mg Tablet 10 mg PO QAM pantoprazole 40 mg Tablet,Delayed Release (Dr/Ec) 40 mg PO HS PreserVision AREDS-2 250-90-40-1 mg Capsule 1 tab PO BID atorvastatin 40 mg Tablet 40 mg PO HS Vyzulta 0.024 % Drops 1 drp OPB HS loperamide 2 mg Capsule 2 mg PO Q6H PRN (Reason: loose stool) Qty: 1 0RF Psyllium Or Guar Gum Fiber Sup [Metamucil Or Nutrisource Fiber Supplement] 1 pkg PO QAM Qty: 1 0RF cefdinir 300 mg capsule 300 mg PO BID Qty: 8 0RF losartan 25 mg tablet 25 mg PO DAILY timolol maleate 0.5 % drops 1 drp OPB QAM Referrals Referrals: Emelina Fu [Primary Care Provider] -
[2023-05-31] MEDS: ASPIRIN CHEW 324 MG ONE (17:10)
[2023-05-31] MEDS: ASPIRIN CHEW 324 MG PO STA (17:10)
[2023-05-31 17:16] LABS: Basophils # (auto) 0.04 K/uL (0.00-0.20); Basophils % (auto) 0.6 %; Eosinophils # (auto) 0.06 K/uL (0.00-0.50); Hematocrit (blood only) 28.3 % (37.0-47.0); Hemoglobin 9.7 g/dl (12.0-16.0); Immature Granulocytes # (auto) 0.01 K/uL (0.01-0.20); Immature Granulocytes % (auto) 0.2 %; Lymphocytes # (auto) 1.43 K/uL (1.20-3.40); Lymphocytes % (auto) 22.8 %; Mean Corpuscular Hemoglobin 33.2 pg (25.0-34.0); Mean Corpuscular Hgb Conc 34.3 g/dL (32.0-36.0); Mean Corpuscular Volume 96.9 fL (80.0-100.0); Mean Platelet Volume 11.9 fL (9.4-12.4); Monocytes # (auto) 0.88 K/uL (0.11-0.59); Monocytes % (auto) 14.1 %; Neutrophils # (auto) 3.84 K/uL (1.40-6.50); Neutrophils % (auto) 61.3 %; Platelet Count 167 K/uL (130-400); RDW Coefficient of Variation 13.8 % (11.5-14.5); RDW Standard Deviation 48.9 fL (36.4-46.3); Red Blood Count 2.92 M/uL (4.20-5.40); White Blood Count 6.26 K/ul (4.8-10.8)
--- NOTE | 2023-05-31 17:20 | History & Physical Report ---
Date of Service May 31, 2023 Assessment & Plan (1) Hypotension: Plan: Hypotension, heart alert Was seen at transitional care visit was found to be hypotensive in office. Progressed to ER for evaluation, EKG concerning for STEMI On ER evaluation ST depressions appreciated leads I/aVL with lead III elevation. Heart alert was called, patient was ordered full dose aspirin, and patient was evaluated by interventional cardiology, on bedside assessment emerg ent cardiac catheterization was not recommended at time of assessment. Repeat EKG obtained at bedside, t wave inversions ar epresent however ST segment in III is with <1mm change. I with t wave inversion/morphology change and borderline depression. Stat echo ordered, troponins trended Admitted to PCU for monitoring At reassessment patient normotensive 112/67 pulse in the 90s, afebrile and in no acute distress. Patient denies chest pain at any point and reports that she overall feels well. - trop 67.3 on admit. trended. (2) UTI (urinary tract infection): Plan: Recently with E. coli and alpha streptococcal UTI. Was discharged on cefdinir to complete 4 additional days of treatment, this has been continued as inpati ent. No leukocytosis, no urinary symptoms, no confusion at time of bedside visit. Does not appear toxic/septic. BP normalized following 500 cc NSS (3) H/O heart artery stent: Plan: History of CAD, PCI. She had MT with PCI to RCA x2, VSD repair, repeat VSD repair 2015, mitral valve repair Echo 05/27/2023 with EF 25-30%. Compared to 2013 with significant LV function decline - Home medications continued (4) CKD (chronic kidney disease) stage 3, GFR 30-59 ml/min: Plan: Baseline creatinine less than 1 Age-adjusted clearance ranges around 4060 Renally dose medications as needed (5) Malnutrition: Plan: Patient with a history of malnutrition and poor intake. Appetite has been limited pending OMFS surgery which she had in 11/2022 and after that had been waiting to get full dentures. Can now tolerate a normal diet but appetite has been generally decreased and overall has had to 40 pounds weight loss in the preceding few months Nutrition consulted, boost Liberalized diet for caloric gain Also with 1.9 apical groundglass abnormality with weight loss concerning for malignancy. Calcium has been intermittently elevated but generally upper range of normal. If rising, PTH/PTH RP Plan CODE STATUS: DNR/DNI Diet: Liberalized regular Disposition: PCU DVT prophylaxis: Heparin History of Present Illness Primary Care Provider: Emelina Trevizo is an 83yo F with a PMHx of recent admission for UTI, hx of CAD with PCI x2, malnutrition with recent OMFS surgery now with improving intake but still limited diet who presents for admission as a heart alert. Patient is seen with her family present. They report they were in their transitional care visit with Dr. Kramer and she was found to have hypotension to the 70s. She reports that she did not feel any lightheadedness, dizziness and has not had chest pain at any point. No palpitations or chest pressure. She reports that after her admission for her UTI she actually feels that she improved and has not had any recurrence of infectious symptoms or confusion. She did take her morning medications today, she takes her metoprolol in the evening. On arrival to the ER EKG was with ST depression in lead I/aVL and elevation in lead III concerning for STEMI. Heart alert was called. Patient was evaluated emergently by interventional cardiology. Old and current EKGs were reviewed. Medical History: Reviewed Medications: Reviewed Surgical History: Reviewed Family history: Reviewed Allergies: Reviewed Social History: Reviewed Code Status: DNR/DNI Allergies Allergy/AdvReac Type Severity Reaction Status Date / Time adhesive Allergy Mild REDENNED Verified 05/27/23 14:03 FROM CERTAIN TYPES Penicillins Allergy Mild RASH Verified 05/27/23 14:03 lisinopril AdvReac Cough Verified 05/27/23 14:03 Home Medications Medication Instructions Recorded Confirmed Type cetirizine 10 mg tablet (Zyrtec) 10 mg PO QAM 12/19/17 05/31/23 History multivitamin 1 tab PO QAM 12/19/17 05/31/23 History pantoprazole 40 mg tablet,delayed 40 mg PO HS 12/19/17 05/31/23 History release atorvastatin 40 mg tablet 40 mg PO HS 06/18/20 05/31/23 History vit C 250 mg-vit E 90 mg-zinc 40 1 tab PO BID 06/18/20 05/31/23 History mg-copper 1 dx-guotsr-mpkyjq capsule (PreserVision AREDS-2) aspirin 81 mg tablet,delayed 81 mg PO QAM 09/25/21 05/31/23 History release (Adult Low Dose Aspirin) donepezil 10 mg tablet 10 mg PO HS 09/25/21 05/31/23 History metoprolol succinate 25 mg 25 mg PO HS 09/25/21 05/31/23 History tablet,extended release 24 hr latanoprostene bunod 0.024 % eye 1 drp OPB HS 10/23/21 05/31/23 History drops (Vyzulta) PSYLLIUM or GUAR GUM FIBER SUP 1 pkg PO QAM #1 box 05/30/23 05/31/23 Rx [METAMUCIL or NUTRISOURCE FIBER SUPPLEMENT] cefdinir 300 mg capsule 300 mg PO BID #8 caps 05/30/23 05/31/23 Rx loperamide 2 mg capsule 2 mg PO Q6H PRN loose stool #1 box 05/30/23 05/31/23 Rx losartan 25 mg tablet 25 mg PO DAILY 05/31/23 05/31/23 History timolol maleate 0.5 % eye drops 1 drp OPB QAM 05/31/23 05/31/23 History Past Med/Surg History Medical History (Updated 05/31/23 @ 17:47 by Gianni Tobar MD) Emphysema lung noted on 04/[address] Heart failure EF 35% Atrial fibrillation post-operative without recurrence per cardio records History of blood transfusion 2014 Gastric ulcer Cardiomyopathy EF 35% Neuropathy GERD (gastroesophageal reflux disease) Alzheimer disease CKD (chronic kidney disease) stage 3, GFR 30-59 ml/min no specialist Deformity of both feet r/t arthritis - able to ambulate with use of cane for long distance History of jaundice as a child no problems since. Glaucoma Myocardial Infarction r/t a vessel rupture ~. Hypertension Hyperlipidemia Surgical History (Updated 12/11/22 @ 11:11 by Teresa Easley RN) Hx of oral surgery (12/11/22) p Removal of Large Bony Mass Palate/Lesion - Yasmany Truong DMD s Extraction of Erupted Teeth x29, Closure of Palatal Soft Tissue Defect, Denture Splint - Yasmany Truong DMD History of esophagogastroduodenoscopy (EGD) History of bilateral tubal ligation History of colonoscopy last 06/25/20 @ [facility] History of cataract surgery bilateral History of open heart surgery VSD repair 05/2013 and 03/2016, mitral and tricuspid valve repairs H/O heart artery stent 2 CHUN RCA 05/2013 Family History Mother Heart disease Other No family history of adverse response to anesthesia Social History (Updated 09/25/22 @ 12:59 by Teresa Easley, YOGESH) Smoking Status: Never smoker Second Hand Exposure: No; Do You Dip or Chew Tobacco: No; Hx Alcohol Use: No Hx Substance Use: No Preferred Language: Faroese Communication Ability: Effective Visual Impairment: No Limitations Propagator Required: No Beliefs That Will Affect Care: None marital status: Current Living Situation: Spouse Current Living Situation Comment: with at [facility] current occupational status: retired Feels Safe at Home: Yes Diet: low salt Assistive Devices: Walker Physical Exam Physical Exam: General: A&Ox3. NAD. Cooperative. HEENT: Atraumatic, normocephalic. Vision/hearing grossly intact Pulm: Diminished but CTAB A&P. -wheezes, -rales, -rhonchi. Symmetrical chest rise. No increased work of breathing. No respiratory distress. Cardiac: RRR, +sm. Radial pulses intact and symmetrical. Abdominal: Nontender, nondistended, soft. BS present. Ext: warm, dry. THin. Results & Data Results & Data Vital Signs (Past 12 Hours) Vital Signs Temp Pulse Resp BP Pulse Ox O2 Del Method 05/31/23 17:07 112/67 97 05/31/23 17:07 91 H 18 05/31/23 17:00 89 23 05/31/23 16:52 90 05/31/23 16:48 93 H 23 05/31/23 16:25 36.5 C 91 H 20 98/44 L 97 Room Air PG Care Time/CCT Total # of Minutes Spent Total Time Spent with Patient: Total time spent is greater than 50% in coordination of care (as documented) at patient's floor/unit and/or counseling patient: Coding Level of Care Code 53016 INT INP/OBS CARE 3/75MIN Diagnoses Hypotension I95.9 UTI (urinary tract infection) N39.0 H/O heart artery stent Z95.5 CKD (chronic kidney disease) stage 3, GFR 30-59 ml/min N18.30 Malnutrition E46
[2023-05-31 17:58] LABS: Prothrombin Time 10.9 Seconds (9.0-12.0)
[2023-05-31 17:59] LABS: Troponin I High Sensitivity 67.3 pg/ml (0-14)
[2023-05-31 18:04] LABS: Albumin Globulin Ratio 1.1 (0.9-2); Albumin Level 2.4 gm/dl (3.4-5.0); BUN Creatinine Ratio 26.9 (10-20); Bilirubin,Total 0.5 mg/dl (0.2-1.0); Calcium 9.4 mg/dl (8.6-10.3); Creatinine Clr Calc Pharmacy 48.8 ml/min; Est GFR (African American) 94.9 ml/min; Est GFR (Non-African American) 81.9 ml/min; Globulin 2.2 gm/dl (2.5-4.0); Magnesium 1.2 mg/dl (1.7-2.4); Potassium 3.9 mmol/L (3.5-5.1); Total Protein 4.6 gm/dl (6.0-8.3)
[2023-05-31] MEDS: fentaNYL citrate PF 100 MCG/2 ML VIAL ONE (18:09)
[2023-05-31] MEDS: OPTIRAY 350 ONE (18:09)
[2023-05-31] MEDS: MIDAZOLAM HCL 1 MG/ML 2ML VIAL ONE (18:09)
[2023-05-31] MEDS: HEPARIN (PORCINE) 1000 UNIT/ML 10 ML (CATH LAB USE ONLY) ONE (18:09)
[2023-05-31] MEDS: niCARdipine HCL INJ 2.5 MG/ML 10 ML AMP ONE (18:10)
[2023-05-31] MEDS: NITROGLYCERIN/D5W 100MCG/ML 20ML SYR ONE (18:10)
--- NOTE | 2023-05-31 18:59 | Cardiology Consultation ---
Date of Consultation May 31, 2023 Assessment & Plan (1) Elevated troponin: Currently around 67. Was over 2200 on the and has trended down since that time. Patient has no ischemic EKG changes although her baseline EKG is quite abnormal. She also has no chest pain or shortness of breath. This is a type II (non-ACS) non-ST elevation NM and is actually likely secondary to the infection for which she was diagnosed on 27 May. I do not intend to proceed with any aggressive measures at this time. She should remain on her chronic coronary artery disease guideline directed therapy including aspirin 81 mg daily, a atorvastatin 40 mg daily losartan 25 mg daily (as blood pressure allows) and metoprolol succinate 25 mg daily (as blood pressure allows). (2) Ischemic cardiomyopathy: This is longstanding. No evidence of volume overload at this time. Given her weight loss, I wonder if her current heart failure regimen may be more than her blood pressure can handle since her hypotension is not likely secondary to UTI at this point. She also has some nutrition and hydration issues which may be contributing. I would recommend an SGLT2 inhibitor as adjuvant but I am somewhat concerned about its potential impact on her blood volume and hypotension. I do believe that a general cardiology consultation to her primary foundation coordinator Dr. Gomez is warranted. History of Present Illness Reason for Consultation: Heart alert History of Present Illness 83-year-old female with significant cardiac history including RCA territory myocardial infarction in May 2013. At that time she received 2 stents to the RCA. However, this was a late presenting myocardial infarction and she had complication of VSD. This required emergent transfer to tertiary center where she underwent VSD repair. She also had acute renal failure at that time which required CVVH. She eventually was able to be discharged and returned home after a long convalescence. Unfortunately, she had recurrence of the VSD secondary to patch failure identified in December 2015. She was subsequently seen at the [facility] in March 2016 where she underwent repair of the VSD using a bovine pericardial patch. At that time she also had mitral valve repair with a #28 [place] and yellow plasty ring and repair of her tricuspid valve with a #28 Sonia classic ring. Postop A-fib was noted but she has had no recurrence. She follows with Dr. Manoj Gomez of [facility] cardiology. Patient was recently admitted for weakness and fall. Admitted on February 15 of this year and found to have UTI. She was discharged yesterday on 30 May and returned to her home at [facility]. Today, she was seen by nursing there at the facility and they found her to have hypotension. She reported dizziness. She was returned to [facility] emergency department. EKG was obtained and there was concern for acute NM. However, the patient reported no chest pain. I was called to evaluate. Patient denied any chest pain, heaviness, or tightness on my evaluation. She actually looked relatively well and was in no acute distress. Her was present at the bedside. I reviewed her EKG which looked similar to prior EKGs. There were no acute ischemic reciprocal changes. I have reviewed her lab work which showed a elevated troponin but this was significantly lower than when she was just admitted for UTI. Therefore, after discussion with the family and the patient I decided against proceeding with aggressive measures such as catheterization at this time. I have reviewed her recent echocardiogram which showed further diminishment in her EF with that calculated at 25 to 30%. She has longstanding akinesis of the inferior and inferoseptal myocardium consistent with prior inferior NM. She has mild RV systolic dysfunction. Mild aortic insufficiency and mild mitral regurgitation. Several findings consistent with her prior surgical history. She denies any syncope, near syncope, orthopnea, PND, racing heartbeat, palpitations, or edema. She actually states that she has not been weak at least compared to prior to her last admission. Overall, however, she has had significant weight loss as she cannot tolerate solid food, has had decreased appetite, and continues to decline physically. Sounds as if she is not able to walk more than a few steps without the aid of a walker. She took her medications as prescribed today. Allergies Allergy/AdvReac Type Severity Reaction Status Date / Time adhesive Allergy Mild REDENNED Verified 05/27/23 14:03 FROM CERTAIN TYPES Penicillins Allergy Mild RASH Verified 05/27/23 14:03 lisinopril AdvReac Cough Verified 05/27/23 14:03 Home Medications Medication Instructions Recorded Confirmed Type cetirizine 10 mg tablet (Zyrtec) 10 mg PO QAM 12/19/17 05/31/23 History multivitamin 1 tab PO QAM 12/19/17 05/31/23 History pantoprazole 40 mg tablet,delayed 40 mg PO HS 12/19/17 05/31/23 History release atorvastatin 40 mg tablet 40 mg PO HS 06/18/20 05/31/23 History vit C 250 mg-vit E 90 mg-zinc 40 1 tab PO BID 06/18/20 05/31/23 History mg-copper 1 [id number] capsule (PreserVision AREDS-2) aspirin 81 mg tablet,delayed 81 mg PO QAM 09/25/21 05/31/23 History release (Adult Low Dose Aspirin) donepezil 10 mg tablet 10 mg PO HS 09/25/21 05/31/23 History metoprolol succinate 25 mg 25 mg PO HS 09/25/21 05/31/23 History tablet,extended release 24 hr latanoprostene bunod 0.024 % eye 1 drp OPB HS 10/23/21 05/31/23 History drops (Vyzulta) PSYLLIUM or GUAR GUM FIBER SUP 1 pkg PO QAM #1 box 05/30/23 05/31/23 Rx [METAMUCIL or NUTRISOURCE FIBER SUPPLEMENT] cefdinir 300 mg capsule 300 mg PO BID #8 caps 05/30/23 05/31/23 Rx loperamide 2 mg capsule 2 mg PO Q6H PRN loose stool #1 box 05/30/23 05/31/23 Rx losartan 25 mg tablet 25 mg PO DAILY 05/31/23 05/31/23 History timolol maleate 0.5 % eye drops 1 drp OPB QAM 05/31/23 05/31/23 History Patient History Medical History Emphysema lung noted on 04/[address] Heart failure EF 35% Atrial fibrillation post-operative without recurrence per cardio records History of blood transfusion 2014 Gastric ulcer Cardiomyopathy EF 35% Neuropathy GERD (gastroesophageal reflux disease) Alzheimer disease CKD (chronic kidney disease) stage 3, GFR 30-59 ml/min no specialist Deformity of both feet r/t arthritis - able to ambulate with use of cane for long distance History of jaundice as a child no problems since. Glaucoma Myocardial Infarction r/t a vessel rupture ~. Hypertension Hyperlipidemia Surgical History Hx of oral surgery (12/11/22) p Removal of Large Bony Mass Palate/Lesion - Yasmany Truong DMD s Extraction of Erupted Teeth x29, Closure of Palatal Soft Tissue Defect, Denture Splint - Yasmany Truong DMD History of esophagogastroduodenoscopy (EGD) History of bilateral tubal ligation History of colonoscopy last 06/25/20 @ [facility] History of cataract surgery bilateral History of open heart surgery VSD repair 05/2013 and 03/2016, mitral and tricuspid valve repairs H/O heart artery stent 2 CHUN RCA 05/2013 Family History Mother Heart disease Other No family history of adverse response to anesthesia Social History Smoking Status: Never smoker Second Hand Exposure: No; Do You Dip or Chew Tobacco: No; Hx Alcohol Use: No Hx Substance Use: No Preferred Language: Ghanaian Communication Ability: Effective Visual Impairment: No Limitations Retail Stock Clerk Required: No Beliefs That Will Affect Care: None marital status: Current Living Situation: Spouse Current Living Situation Comment: with at [facility] current occupational status: retired Feels Safe at Home: Yes Diet: low salt Assistive Devices: Walker Review of Systems Review of Systems: Frequent urination. Otherwise negative except as per HPI Physical Exam Constitutional: WD/WN, vitals as above (Elderly, cachectic, frail, chronically ill-appearing. No acute distress) Eyes: Extraocular muscles intact. Sclera are anicteric. ENMT: Oral mucosa is pink and dry Neck: No JVD appreciated Respiratory: Clear to auscultation bilaterally. No wheezing or rhonchi. Fair air movement. Cardiovascular: Regular rate and rhythm. S4 gallop. Grade 2/6 systolic murmur. No edema. Musculoskeletal: Generalized weakness Neurologic: Cognition is intact with diminished memory. Speech is fluent. No focal motor deficits. No tremor. Psychiatric: A+Ox3, euthymic affect Results & Data Vital Signs (Past 12 Hours) Vital Signs Temp Pulse Resp BP Pulse Ox O2 Del Method 05/31/23 18:30 85 17 05/31/23 18:00 87 18 05/31/23 17:54 143/67 H 05/31/23 17:54 88 25 H 05/31/23 17:30 86 14 05/31/23 17:07 112/67 97 05/31/23 17:07 91 H 18 05/31/23 17:00 89 23 05/31/23 16:52 90 05/31/23 16:48 93 H 23 05/31/23 16:25 36.5 C 91 H 20 98/44 L 97 Room Air PG Care Time/CCT Total # of Minutes Spent Total Time Spent with Patient: Total time spent is greater than 50% in coordination of care (as documented) at patient's floor/unit and/or counseling patient: Coding Level of Care Code 40324 ER DEPT VISIT MOD LVL 4 Diagnoses Elevated troponin R79.89 Ischemic cardiomyopathy I25.5
[2023-05-31] MEDS: MAGNESIUM SULFATE / D5W 1 GM/100 ML BAG IV SCH (20:02)
[2023-05-31] MEDS: MAGNESIUM OXIDE 400 MG TAB PO SCH (21:33)
[2023-05-31] MEDS ORDERED: ONDANSETRON INJ 2 MG/ML 2 ML VIAL IV PRN (22:49)
[2023-05-31] MEDS: CEFDINIR 300 MG CAP PO SCH (23:59)
[2023-06-01] MEDS: METOPROLOL SUCC 25MG EXT REL TAB PO SCH
[2023-06-01] MEDS: DONEPEZIL HCL 10 MG TAB PO SCH
[2023-06-01] MEDS: PANTOprazole 40 MG TAB PO SCH
[2023-06-01] MEDS: ATORVASTATIN 40 MG TAB PO SCH
[2023-06-01 02:19] LABS: Basophils # (auto) 0.04 K/uL (0.00-0.20); Basophils % (auto) 0.6 %; Eosinophils # (auto) 0.16 K/uL (0.00-0.50); Eosinophils % (auto) 2.5 %; Hematocrit (blood only) 28.2 % (37.0-47.0); Hemoglobin 9.4 g/dl (12.0-16.0); Immature Granulocytes # (auto) 0.01 K/uL (0.01-0.20); Immature Granulocytes % (auto) 0.2 %; Lymphocytes # (auto) 2.28 K/uL (1.20-3.40); Lymphocytes % (auto) 35.4 %; Mean Corpuscular Hemoglobin 32.5 pg (25.0-34.0); Mean Corpuscular Hgb Conc 33.3 g/dL (32.0-36.0); Mean Corpuscular Volume 97.6 fL (80.0-100.0); Mean Platelet Volume 11.2 fL (9.4-12.4); Monocytes # (auto) 0.92 K/uL (0.11-0.59); Monocytes % (auto) 14.3 %; Neutrophils # (auto) 3.03 K/uL (1.40-6.50); Platelet Count 153 K/uL (130-400); RDW Coefficient of Variation 14.1 % (11.5-14.5); RDW Standard Deviation 50.2 fL (36.4-46.3); Red Blood Count 2.89 M/uL (4.20-5.40); White Blood Count 6.44 K/ul (4.8-10.8)
[2023-06-01 02:32] LABS: BUN Creatinine Ratio 28.1 (10-20); Calcium 9.6 mg/dl (8.6-10.3); Creatinine Clr Calc Pharmacy 57.8 ml/min; Est GFR (African American) 100.1 ml/min; Est GFR (Non-African American) 86.3 ml/min; Potassium 3.8 mmol/L (3.5-5.1)
--- NOTE | 2023-06-01 08:29 | Hospitalist Progress Note ---
Date of Service June 01, 2023 Assessment & Plan (1) Hypotension: Plan: Hypotension, heart alert Was seen at transitional care visit was found to be hypotensive in office. Progressed to ER for evaluation, EKG concerning for STEMI On ER evaluation ST depressions appreciated leads I/aVL with lead III elevation. Heart alert was called, patient was ordered full dose aspirin, and patient was evaluated by interventional cardiology, on bedside assessment emerge nt cardiac catheterization was not recommended Repeat EKG obtained at bedside, t wave inversions are present however ST segment in III is with <1mm change. I with t wave inversion/morphology change and borderline depression. ECHO left ventricular function is moderately reduced septum and basilar inferior wall are akinetic thinning of the mid septum similar to previous , troponins trended 69-54-48 (much lower than last admission) (2) UTI (urinary tract infection): Plan: Recently with E. coli and alpha streptococcal UTI. Was discharged on cefdinir to complete 4 additional days of treatment, this has been continued as inpatient. No leukocytosis, no urinary symptoms, no confusion at time of bedside visit. Does not appear toxic/septic. BP normalized following 500 cc NSS (3) H/O heart artery stent: Plan: History of CAD, PCI. She had [place] with PCI to RCA x2, VSD repair, repeat VSD repair 2015, mitral valve repair Echo 05/27/2023 with EF 25-30%. Compared to 2013 with significant LV function decline (4) CKD (chronic kidney disease) stage 3, GFR 30-59 ml/min: Plan: Baseline creatinine less than 1 Age-adjusted clearance ranges around 4060 Renally dose medications as needed (5) Malnutrition: Plan: Patient with a history of malnutrition and poor intake. Appetite has been limited pending OMFS surgery which she had in 11/2022 and after that had been waiting to get full dentures. Can now tolerate a normal diet but appetite has been generally decreased and overall has had to 40 pounds weight loss in the preceding few months Nutrition consulted, boost Liberalized diet for caloric gain Also with 1.9 apical groundglass abnormality with weight loss concerning for malignancy. Calcium has been intermittently elevated but generally upper range of normal. If rising, PTH/PTH RP Plan CODE STATUS: DNR/DNI Patient did go to [facility] at [facility] likely bed available on 06/03/2023 Admission and Anticipated Discharge Date Admission Date: May 31, 2023 Subjective pt is in good spirits still with lower blood pressures but no symptoms of chest pain, shortness of breath or dizziness pt will be for short term rehab at [facility] and looking for placement Physical Exam Physical Exam: awake and alert, actually looks improved cardiac exam is regular lungs are clear abd is soft and ext without edema Results & Data Results & Data Vital Signs (Past 12 Hours) Vital Signs Temp Pulse Pulse Resp BP Pulse Ox O2 Del Method 06/01/23 07:47 97.9 F 65 18 95/56 L 94 Room Air 06/01/23 06:22 64 18 104/61 97 Room Air 06/01/23 03:04 97.7 F 80 18 100/59 L 98 Room Air 05/31/23 22:20 97.9 F 82 16 106/66 96 Room Air 05/31/23 22:05 78 05/31/23 21:41 73 20 125/64 98 Laboratory Results Reviewed CBC Reviewed chemistry For suspected Dr. Doug Pinto director of [facility] PG Care Time/CCT Total # of Minutes Spent Total Time Spent with Patient: Total time spent is greater than 50% in coordination of care (as documented) at patient's floor/unit and/or counseling patient: Coding Level of Care Code 38524 SUB INP/OBS CARE 3/50MIN Diagnoses Hypotension I95.9 UTI (urinary tract infection) N39.0 H/O heart artery stent Z95.5 CKD (chronic kidney disease) stage 3, GFR 30-59 ml/min N18.30 Malnutrition E46
[2023-06-01] MEDS ORDERED: NON-FORMULARY MEDICATION (Multivitamin Tablet) PO SCH (09:00)
[2023-06-01] MEDS ORDERED: TIMOLOL MALEATE 0.5% OP SOLN 5 ML BTL OPB SCH (09:00)
[2023-06-01] MEDS: CETIRIZINE HCL 10 MG TABLET PO SCH (10:27)
[2023-06-01] MEDS: CEROVITE ADV FORMULA TAB PO SCH (10:27)
[2023-06-01] MEDS: TIMOLOL MALEATE 0.5% OP SOLN 5 ML BTL OPB SCH (10:27)
[2023-06-01] MEDS: ASPIRIN 81 MG ECTAB PO SCH (10:27)
[2023-06-01] MEDS: HEPARIN SOD 5,000 UNIT/0.5 ML VIAL SQ SCH (10:28)
--- NOTE | 2023-06-01 11:07 | Electrocardiogram Report ---
Test Reason : Blood Pressure : / mmHG Vent. Rate : 086 BPM Atrial Rate : 000 BPM P-R Int : 000 ms QRS Dur : 096 ms QT Int : 398 ms P-R-T Axes : 000 102 147 degrees QTc Int : 476 ms Sinus rhythm Rightward axis Low voltage QRS Nonspecific ST and T wave abnormality Prolonged QT Abnormal ECG When compared with ECG of 31-MAY-2023 16:52, (unconfirmed) Criteria for Anteroseptal infarct are no longer Present Non-specific change in ST segment in Anterior leads Confirmed by Rd Naqvi ([id number]) on 06/01/2023 11:07:16 AM Referred By: Braydenorly Fu Confirmed By:Michi Naqvi
--- NOTE | 2023-06-01 11:09 | Electrocardiogram Report ---
Test Reason : Blood Pressure : / mmHG Vent. Rate : 090 BPM Atrial Rate : 090 BPM P-R Int : 200 ms QRS Dur : 088 ms QT Int : 420 ms P-R-T Axes : 000 101 148 degrees QTc Int : 513 ms Normal sinus rhythm Rightward axis Anteroseptal infarct (cited on or before 21-MAY-2013) Inferior injury pattern ACUTE HI / STEMI Consider right ventricular involvement in acute inferior infarct Abnormal ECG Confirmed by Rd Naqvi ([id number]) on 06/01/2023 11:08:36 AM Referred By: Emelina Fu Confirmed By:Michi Naqvi
--- NOTE | 2023-06-01 12:11 | XCELERA ---
[id number] \\[id number]
[2023-06-01 15:22] LABS: Appearance Urine Cloudy (Clear); Bacteria Urine Automated Negative (Negative); Bilirubin Urine Negative (Negative); Blood Urine Negative (Negative); Color Urine Dark Yellow; Epithelial Cell Urine Auto >30 /lpf (0-5); Glucose Urine UA Negative (Negative); Ketones Urine Trace (Negative); Leukocyte Esterase Urine 1+ (Negative); Nitrite Urine Negative (Negative); Protein Urine Trace (Negative); RBC Urine Automated 0-4 /hpf (0-4); Specific Gravity Urine 1.021 (1.000-1.030); Urobilinogen Urine Negative (Negative); pH Urine 6.5 (4.5-7.5)
[2023-06-01 15:35] LABS: Uric Acid Crystals Urine Present (None Prsent)
[2023-06-01] MEDS: ACETAMINOPHEN 325 MG TAB PO PRN (21:31)
[2023-06-02 06:37] LABS: Basophils # (auto) 0.04 K/uL (0.00-0.20); Basophils % (auto) 0.8 %; Eosinophils # (auto) 0.17 K/uL (0.00-0.50); Eosinophils % (auto) 3.4 %; Hematocrit (blood only) 27.5 % (37.0-47.0); Hemoglobin 9.2 g/dl (12.0-16.0); Immature Granulocytes # (auto) 0.01 K/uL (0.01-0.20); Immature Granulocytes % (auto) 0.2 %; Lymphocytes # (auto) 1.91 K/uL (1.20-3.40); Lymphocytes % (auto) 38.5 %; Mean Corpuscular Hemoglobin 32.7 pg (25.0-34.0); Mean Corpuscular Hgb Conc 33.5 g/dL (32.0-36.0); Mean Corpuscular Volume 97.9 fL (80.0-100.0); Mean Platelet Volume 11.1 fL (9.4-12.4); Monocytes # (auto) 0.74 K/uL (0.11-0.59); Monocytes % (auto) 14.9 %; Neutrophils # (auto) 2.09 K/uL (1.40-6.50); Neutrophils % (auto) 42.2 %; Platelet Count 152 K/uL (130-400); RDW Coefficient of Variation 14.1 % (11.5-14.5); RDW Standard Deviation 51.1 fL (36.4-46.3); Red Blood Count 2.81 M/uL (4.20-5.40); White Blood Count 4.96 K/ul (4.8-10.8)
[2023-06-02 07:05] LABS: BUN Creatinine Ratio 35.5 (10-20); Creatinine Clr Calc Pharmacy 53.7 ml/min; Est GFR (African American) 97.3 ml/min; Potassium 3.9 mmol/L (3.5-5.1)
--- NOTE | 2023-06-02 08:15 | Hospitalist Progress Note ---
Date of Service June 02, 2023 Assessment & Plan (1) Hypotension: Plan: Hypotension, heart alert Was seen at transitional care visit was found to be hypotensive in office. Progressed to ER for evaluation, EKG concerning for STEMI On ER evaluation ST depressions appreciated leads I/aVL with lead III elevation. Heart alert was called, patient was ordered full dose aspirin, and patient was evaluated by interventional cardiology, on bedside assessment emerge nt cardiac catheterization was not recommended Repeat EKG obtained at bedside, t wave inversions are present however ST segment in III is with <1mm change. I with t wave inversion/morphology change and borderline depression. ECHO left ventricular function is moderately reduced septum and basilar inferior wall are akinetic thinning of the mid septum similar to previous , troponins trended 69-54-48 (much lower than last admission) Pt remains with lower blood pressures, will try to change metoprolol to low dose coreg to see if we can improve, needs small adult cuff for BP accuracy (2) UTI (urinary tract infection): Plan: Recently with E. coli and alpha streptococcal UTI. Was discharged on cefdinir to complete 4 additional days of treatment, this has been continued as inpatient. No leukocytosis, no urinary symptoms, no confusion at time of bedside visit. Does not appear toxic/septic. BP normalized following 500 cc NSS (3) H/O heart artery stent: Plan: History of CAD, PCI. She had [place] with PCI to RCA x2, VSD repair, repeat VSD repair 2015, mitral valve repair Echo 05/27/2023 with EF 25-30%. Compared to 2013 with significant LV function decline (4) CKD (chronic kidney disease) stage 3, GFR 30-59 ml/min: Plan: Baseline creatinine less than 1 Age-adjusted clearance ranges around 4060 Renally dose medications as needed (5) Malnutrition: Plan: Patient with a history of malnutrition and poor intake. Appetite has been limited pending OMFS surgery which she had in 11/2022 and after that had been waiting to get full dentures. Can now tolerate a normal diet but appetite has been generally decreased and overall has had to 40 pounds weight loss in the preceding few months Nutrition consulted, boost Liberalized diet for caloric gain Also with 1.9 apical groundglass abnormality with weight loss concerning for malignancy. Calcium has been intermittently elevated but generally upper range of normal. If rising, PTH/PTH RP Plan CODE STATUS: DNR/DNI Patient did go to [facility] at [facility] [address] bed available on 06/03/2023 Admission and Anticipated Discharge Date Admission Date: May 31, 2023 Results & Data Results & Data Vital Signs (Past 12 Hours) Vital Signs Temp Pulse Pulse Resp BP Pulse Ox O2 Del Method 06/02/23 07:11 97.5 F L 66 17 95/52 L 94 Room Air 06/02/23 03:02 97.9 F 69 16 89/55 L 95 Room Air 06/01/23 22:59 67 06/01/23 22:49 06/01/23 22:46 98.1 F 65 17 96/61 L 97 Room Air O2 Del Method 06/02/23 07:11 06/02/23 03:02 06/01/23 22:59 06/01/23 22:49 Room Air 06/01/23 22:46 PG Care Time/CCT Total # of Minutes Spent Total Time Spent with Patient: Total time spent is greater than 50% in coordination of care (as documented) at patient's floor/unit and/or counseling patient: Coding Diagnoses Hypotension I95.9 UTI (urinary tract infection) N39.0 H/O heart artery stent Z95.5 CKD (chronic kidney disease) stage 3, GFR 30-59 ml/min N18.30 Malnutrition E46
[2023-06-02] MEDS ORDERED: carvediloL 3.125 MG TAB PO SCH (17:00)
--- NOTE | 2023-06-02 20:12 | Discharge Summary ---
Date of Service June 02, 2023 Admission HPI Per Admitting Provider Joseline is an 83yo F with a PMHx of recent admission for UTI, hx of CAD with PCI x2, malnutrition with recent OMFS surgery now with improving intake but still limited diet who presents for admission as a heart alert. Patient is seen with her family present. They report they were in their transitional care visit with Dr. Kramer and she was found to have hypotension to the 70s. She reports that she did not feel any lightheadedness, dizziness and has not had chest pain at any point. No palpitations or chest pressure. She reports that after her admission for her UTI she actually feels that she improved and has not had any recurrence of infectious symptoms or confusion. She did take her morning medications today, she takes her metoprolol in the evening. On arrival to the ER EKG was with ST depression in lead I/aVL and elevation in lead III concerning for STEMI. Heart alert was called. Patient was evaluated emergently by interventional cardiology. Old and current EKGs were reviewed. Medical History: Reviewed Medications: Reviewed Surgical History: Reviewed Family history: Reviewed Allergies: Reviewed Social History: Reviewed Code Status: DNR/DNI Principal Diagnosis Low blood pressure EKG changes felt not to be ACS Deconditioning and weakness Urinary tract infection present on admission Discharge Exam Patient improved from the last hospital stay she has no focal complaints Card exam is regular there are no rubs lungs are clear Discharge Data Allergies Allergy/AdvReac Type Severity Reaction Status Date / Time adhesive Allergy Mild REDENNED Verified 05/27/23 14:03 FROM CERTAIN TYPES Penicillins Allergy Mild RASH Verified 05/27/23 14:03 lisinopril AdvReac Cough Verified 05/27/23 14:03 Consultations 05/31/23 17:20 ED Decision to Admit Stat 05/31/23 22:49 Consult Cardiology Routine Procedures Performed Operation Date: 05/31/23 17:15 <No data on this case meets the specified criteria> Ordered Studies 05/31/23 17:09 CL Cath Imgs for PACS use only Stat Hospital Course (1) Hypotension: Hypotension, heart alert Was seen at transitional care visit was found to be hypotensive in office. Progressed to ER for evaluation, EKG concerning for STEMI On ER evaluation ST depressions appreciated leads I/aVL with lead III elevation. Heart alert was called, patient was ordered full dose aspirin, and patient was evaluated by interventional cardiology, on bedside assessment emergent cardiac catheterization was not recommended ECHO left ventricular function is moderately reduced septum and basilar inferior wall are akinetic thinning of the mid septum similar to previous ,troponins trended 69-54-48 (much lower than last admission) felt to be consistent with demand ischemia Pt remains with lower blood pressures, stopping beta-minh at time of discharge if 1 is needed may consider carvedilol. Recommending small adult cuff for BP accuracy (2) UTI (urinary tract infection): Recently with E. coli and alpha streptococcal UTI. Was discharged on cefdinir to complete 4 additional days of treatment, (3) H/O heart artery stent: History of CAD, PCI. She had CT with PCI to RCA x2, VSD repair, repeat VSD repair 2015, mitral valve repair Echo 05/27/2023 with EF 25-30%. Compared to 2013 with significant LV function decline (4) CKD (chronic kidney disease) stage 3, GFR 30-59 ml/min: Baseline creatinine less than 1 Age-adjusted clearance ranges around 4060 Renally dose medications as needed (5) Malnutrition: Patient with a history of malnutrition and poor intake. Appetite has been limited pending OMFS surgery which she had in 11/2022 and after that had been waiting to get full dentures. Can now tolerate a normal diet but appetite has been generally decreased and overall has had to 40 pounds weight loss in the preceding few months Discussed case with medical home physician Dr. Doug Pinto. He recommends patient be in the skilled portion of [facility] while her nutrition is being optimized. Also with 1.9 apical groundglass abnormality with weight loss concerning for malignancy. Calcium has been intermittently elevated but generally upper range of normal. If rising, PTH/PTH RP Plan CODE STATUS: DNR/DNI Patient did go to [facility] at [facility] on 06/03/2023 Total Time Total Time Spent Total Time Spent (In Minutes): It required greater than 30 minutes to prepare this patient for discharge. Discharge Plan Discharge Items Patient Disposition: Transfer Snf Fac Reason For Visit: HEART ALERT Discharge Diagnosis: low blood pressure elevated troponin, not acute coronary syndrome completion of antibiotics for uti dysphagia Activity: Resume your previous activity Activity Comment: per physical therapy and oocupational therapy evaluation Non-emergency contact: Primary Care Provider Call non-emergency contact if: your symptoms worsen Follow-up/Referrals: Emelina Fu [Primary Care Provider] - Diet: Regular Diet Texture: Pureed (blended smooth) Addtl Attending Provider Instructions: please encourage good hydration follow blood pressures while off medication, if need to start something consider low dose coreg be sure to use small adult cuff to check blood pressures encourage good nutrition complete cefdinir that was Rx during last hospital discharge chel 3-4 more days Pending Studies at Discharge: No Stand-Alone Forms: My [facility] Skilled Items Patient informed of condition?: Yes DNR: Yes Discharge Level of Care: Acute rehab Communicable Disease: No Discharge Prognosis: Stable Lines: None Urinary Catheter: No Medications and DC Order Prescriptions: Continued aspirin [Adult Low Dose Aspirin] 81 mg tablet,delayed release (DR/EC) 81 mg PO QAM donepezil 10 mg tablet 10 mg PO HS multivitamin Tablet 1 tab PO QAM cetirizine [Zyrtec] 10 mg Tablet 10 mg PO QAM pantoprazole 40 mg Tablet,Delayed Release (Dr/Ec) 40 mg PO HS PreserVision AREDS-2 250-90-40-1 mg Capsule 1 tab PO BID atorvastatin 40 mg Tablet 40 mg PO HS Vyzulta 0.024 % Drops 1 drp OPB HS loperamide 2 mg Capsule 2 mg PO Q6H PRN (Reason: loose stool) Qty: 1 0RF Psyllium Or Guar Gum Fiber Sup [Metamucil Or Nutrisource Fiber Supplement] 1 pkg PO QAM Qty: 1 0RF cefdinir 300 mg capsule 300 mg PO BID Qty: 8 0RF timolol maleate 0.5 % drops 1 drp OPB QAM Discontinued metoprolol succinate 25 mg tablet extended release 24 hr 25 mg PO HS losartan 25 mg tablet 25 mg PO DAILY Discharge Orders: Discharge Order (Routine); Ordered 06/02/23 Ordered By: Ari Nieves Admission Data Admit Date/Time: 05/31/23 19:35 Attending Provider: Gianni Tobar Admit Provider: Gianni Tobar Primary Care Provider: Emelina Fu Other Providers: Gianni Tobar; Juan Stephens Other Interventions: Discharge Summary Assessment (RN) Last Done: 06/02/23 18:00 Coding Level of Care Code 20474 INP/OBS DISCH >30 MIN Diagnoses Hypotension I95.9 UTI (urinary tract infection) N39.0 H/O heart artery stent Z95.5 CKD (chronic kidney disease) stage 3, GFR 30-59 ml/min N18.30 Malnutrition E46
== END 2023-06-02 18:35 | DRG 315 ==
LOC: ED 16:36 → EDINP 19:35 → 2S 22:46
DX: E46 Unspecified protein-calorie malnutrition; K21.9 Gastro-esophageal reflux disease without esophagitis; B95.4 Other streptococcus as the cause of diseases classified elsewhere; Z91.048 Other nonmedicinal substance allergy status; N39.0 Urinary tract infection, site not specified; I95.9 Hypotension, unspecified; N18.30 Chronic kidney disease, stage 3 unspecified; I24.89 Other forms of acute ischemic heart disease; I25.10 Atherosclerotic heart disease of native coronary artery without angina pectoris; Z66 Do not resuscitate; F02.80 Dementia in other diseases classified elsewhere, unspecified severity, without behavioral disturbance, psychotic disturbance, mood disturbance, and anxiety; Z79.899 Other long term (current) drug therapy; Z68.1 Body mass index [BMI] 19.9 or less, adult; I25.5 Ischemic cardiomyopathy; I12.9 Hypertensive chronic kidney disease with stage 1 through stage 4 chronic kidney disease, or unspecified chronic kidney disease; E78.5 Hyperlipidemia, unspecified; I25.2 Old myocardial infarction; Z88.0 Allergy status to penicillin; Z79.82 Long term (current) use of aspirin; Z95.5 Presence of coronary angioplasty implant and graft; G30.9 Alzheimer's disease, unspecified; H40.9 Unspecified glaucoma; Z88.8 Allergy status to other drugs, medicaments and biological substances; B96.20 Unspecified Escherichia coli [E. coli] as the cause of diseases classified elsewhere